=== PATIENT | female | born 1940 | race African-American/Black ===

== ENCOUNTER → 2016-12-07 | Outpatient (CLI) | payer BC, MEDICARE ==
[2015-12-25 15:19] VITALS: BP 133/63
[~2016-12-07] MED LIST: AMLO1TAB20 PO; ASPI-482 PO; CHOL10003 PO; CLON0.1T PO; CRESTOR5 MG PO; CYAN10002 IM; FENO48TA16 PO; GLIM1TAB2 PO; ISOS20TA2 PO; METO25TA4 PO; OMEG500C PO; POTA10TA5 PO; TRAM1TAB4 PO
--- NOTE | 2016-12-07 10:50 | RAD ---
DATE: 12/07/2016 EXAM: DIGITAL SCREEN BILAT W/CAD HISTORY: Screening COMPARISON: One year earlier This study was interpreted with the benefit of Computerized Aided Detection (CAD). FINDINGS: Breast Density: FATTY The Breast Parenchyma is primarily fatty replaced. Breast parenchyma level density A.. On the conventional images there is a density seen laterally in the right breast. Additional images were obtained and no definite mass is seen although the density does persist on the rolled medial image. It probably reflects summation artifact. Ultrasound was performed. The examination was targeted to the periareolar position and the lateral aspect of the breast. A definite mass laterally in the breast, corresponding to the density seen on the mammogram (again probably reflecting summation artifact) s not seen. There is a triangular hypoechoic area, nonvascular, at the 12:30 position of the breast 3 cm from the nipple which is probably benign. Follow-up mammography of the right breast and targeted ultrasound is suggested in 4 months to confirm stability IMPRESSION: Probable benign findings in the right breast as outlined above. Follow-up mammography and targeted ultrasound in 3-4 months advised BI-RADS CATEGORY: 3 PROBABLE BENIGN FINDING(S-SHORT INTERVAL FOLLOW-UP SUGGESTED RECOMMENDED FOLLOW-UP: 3M 3 MONTH FOLLOW-UP PQRS compliance statement: Patient information was entered into a reminder system with a target due date 04/09/2017 for the next mammogram. Mammography is a sensitive method for finding small breast cancers, but it does not detect them all and is not a substitute for careful clinical examination. A negative mammogram does not negate a clinically suspicious finding and should not result in delay in biopsying a clinically suspicious abnormality. "Our facility is accredited by the [employer] Mammography Program."
== END | disposition home or self-care (01) ==
LOC: MAMMO 08:16
PROVIDERS: ATTEND Obstetrics & Gynecology
DX: Z12.31 Encounter for screening mammogram for malignant neoplasm of breast (principal)
CPT/HCPCS: G0202; 77067

== ENCOUNTER 2017-05-10 11:10 | Emergency (ER) | payer MEDICARE ==
[2017-05-10 11:59] LABS: ADD MAN DIFF? NO
[2017-05-10] MEDS: MECLIZINE HCL 12.5 MG TABLET. PO (12:01)
[2017-05-10] MEDS: ONDANSETRON PF 4 MG/2 ML VIAL. IV (12:01)
[2017-05-10] MEDS: IV NORMAL SALINE 500ML BAG 500 ML IV (12:01)
[2017-05-10 12:04] LABS: BASO # 0.1 x10^3/uL (0.0-0.2); BASO % 1 % (0-3); EOS # 0.2 x10^3/uL (0.0-0.7); EOS % 2 % (0-3); HEMATOCRIT 37.4 % (36.0-47.0); HEMOGLOBIN 12.5 g/dL (12.0-15.5); LYMPH # 2.2 x10^3/uL (1.0-4.8); LYMPH % 24 % (24-48); MEAN CORPUSCULAR HEMOGLOBIN 28 pg (25-35); MEAN CORPUSCULAR HGB CONC 33 g/dL (31-37); MEAN CORPUSCULAR VOLUME 85 fL (79-100); MONO # 0.6 x10^3/uL (0.0-1.1); MONO % 7 % (0-9); NEUT # 6.2 x10^3uL (1.8-7.7); NEUT % 67 % (31-73); PLATELET COUNT 398 x10^3/uL (140-400); RED BLOOD COUNT 4.42 x10^6/uL (3.50-5.40); RED CELL DISTRIBUTION WIDTH 14.7 % (11.5-14.5); WHITE BLOOD COUNT 9.2 x10^3/uL (4.0-11.0)
[2017-05-10 12:21] LABS: TROPONINI < 0.017 ng/mL (0.000-0.055)
[2017-05-10 12:22] LABS: ANION GAP 10 (6-14); BLOOD UREA NITROGEN 29 mg/dL (7-20); BUN/CREATININE RATIO 26 (6-20); CALCIUM 9.5 mg/dL (8.5-10.1); CARBON DIOXIDE 28 mmol/L (21-32); CHLORIDE 104 mmol/L (98-107); CREATININE 1.1 mg/dL (0.6-1.0); GFR 58.3; GLUCOSE 138 mg/dL (70-99); POTASSIUM 3.8 mmol/L (3.5-5.1); SODIUM 142 mmol/L (136-145)
[2017-05-10 12:25] LABS: ALBUMIN 3.6 g/dL (3.4-5.0); ALBUMIN/GLOBULIN RATIO 0.9 (1.0-1.7); ALK PHOS 53 U/L (46-116); ALT (SGPT) 27 U/L (14-59); AST (SGOT) 27 U/L (15-37); TOTAL BILIRUBIN 0.3 mg/dL (0.2-1.0); TOTAL PROTEIN 7.5 g/dL (6.4-8.2)
[2017-05-10] MEDS ORDERED: CONTRAST GIVEN MC (12:30)
[2017-05-10] MEDS: IOHEXOL 300 MG/ML 100ML VIAL. IV (12:50)
== END 2017-05-10 15:18 | disposition home or self-care (01) ==
LOC: ER 11:10
DX: R42 Dizziness and giddiness (principal); G45.0 Vertebro-basilar artery syndrome; I65.21 Occlusion and stenosis of right carotid artery; E78.00 Pure hypercholesterolemia, unspecified; E11.9 Type 2 diabetes mellitus without complications; I10 Essential (primary) hypertension; I25.10 Atherosclerotic heart disease of native coronary artery without angina pectoris; Z90.710 Acquired absence of both cervix and uterus; Z90.49 Acquired absence of other specified parts of digestive tract; Z88.0 Allergy status to penicillin; Z88.1 Allergy status to other antibiotic agents; Z88.8 Allergy status to other drugs, medicaments and biological substances
CPT/HCPCS: 36415; 70496; 70498; 71045; 80053; 84484; 85025; 93005; 96361; 96374; 99285-25; J2405; J7040; J8597; Q9967

== ENCOUNTER → 2017-05-19 | Outpatient (CLI) | payer MEDICARE | END | disposition home or self-care (01) | LOC: ECHO 10:32 | DX: I25.10 Atherosclerotic heart disease of native coronary artery without angina pectoris (principal); I51.7 Cardiomegaly | CPT/HCPCS: 93306 ==

== ENCOUNTER → 2017-12-08 | Outpatient (CLI) | payer MEDICARE ==
[2017-05-10 13:54] VITALS: BP 170/76
[~2017-12-08] MED LIST changes: +MECL25TA3 PO; +POTA10TA12 PO; -POTA10TA5 PO
--- NOTE | 2017-12-08 09:22 | RAD ---
DATE: 12/08/2017 EXAM: MAMMO JASON SCREENING BILATERAL HISTORY: Routine screening COMPARISON: 12/07/2016 This study was interpreted with the benefit of Computerized Aided Detection (CAD). Breast Density: FATTY The breast parenchyma is primarily fatty replaced. Breast parenchyma level density A. FINDINGS: 2-D and 3-D tomosynthesis imaging was performed in CC and MLO projections. Several tiny smooth nodules are present in both breasts. These are better demonstrated on the current 3-D views compared to the previous 2-D studies. Multiple smooth nodule such as this tend to be benign. No spiculated mass or architectural distortion is evident. Benign type calcifications are present. No suspicious microcalcifications have developed. IMPRESSION: There is no mammographic evidence of malignancy in either breast. BI-RADS CATEGORY: 2 BENIGN FINDING(S) RECOMMENDED FOLLOW-UP: 12M 12 MONTH FOLLOW-UP PQRS compliance statement: Patient information was entered into a reminder system with a target due date for the next mammogram. Mammography is a sensitive method for finding small breast cancers, but it does not detect them all and is not a substitute for careful clinical examination. A negative mammogram does not negate a clinically suspicious finding and should not result in delay in biopsying a clinically suspicious abnormality. "Our facility is accredited by the [employer] Mammography Program."
== END | disposition home or self-care (01) ==
LOC: MAMMO 07:56
PROVIDERS: ATTEND Obstetrics & Gynecology
DX: Z12.31 Encounter for screening mammogram for malignant neoplasm of breast (principal)
CPT/HCPCS: 77063; 77067

== ENCOUNTER → 2018-01-28 | Outpatient (CLI) | payer MEDICARE ==
[2017-05-10 13:54] VITALS: BP 170/76
[~2018-01-28] MED LIST changes: +AMLO-292 PO; -AMLO1TAB20 PO; +REGADENOSON 0.4 MG/5 ML DISP.SYRIN. IV ONE
--- NOTE | 2018-01-28 12:59 | RAD ---
MR#: [id number] Date of Study: 01/28/2018 Ordering Physician: EMEKA LIMA, Referring Physician: BIBI JACKSON Tech: ERNIE Hinton, ARRT (R) (N) APPROVED REPORT Test Type: Pharmacological Stress Nurse/Tech: Jordana Miller R.N. Test Indications: CAD, palpatations, SOB Cardiac History: obese, htn, heart cath- no stents, DM Medications: See Electronic Medical Record Medical History: See Electronic Medical Record Resting Heart Rate: 76 bpm Resting Blood Pressure: 137/84mmHg Pretest Chest Pain: No chest pain Nurse/Tech Notes S1S2, lungs CTA Consent: The procedure was explained to the patient in lay terms. Informed consent was witnessed. Feng eout was entered into [employer]. History and Stress Test performed by Stephani Perdomo, (R) (N) Pharm. Details Pharmacologic stress testing was performed using 0.4mg per 5ml of regadenoson given intravenously ove r 7-10 seconds. Stress Symptoms slight SOB, a very weird feeling, severe h/a at first then deminished to just minimally noticed. Pt's b/p became very elevated post lexiscan and stayed elevated through the end of recovery period. had p t take her home b/p meds( takes 3) and will recheck b/p when she comes back for after stress images. Notified Carol REA of these issues. will update him after next VS taken. 1245 b/p rechecked 1 hour a fter she took her home b/p medications.b/p is now 187/73. notified Dr. Lima POST EXERCISE Reason for Termination: Infusion complete Max HR: 108 bpm Max Blood Pressure: 219/78mmHg Blood Pressure response to exercise: Abnormal increase in blood pressure during stress. Heart Rate response to exercise: wnl Chest Pain: No. Arrhythmia: No. INTERPRETATION Stress EKG Conclusion: The resting EKG shows a sinus rhythm and diffuse nonspecific ST-T wave changes . The stress EKG showed further nonspecific ST-T wave changes. Baseline abnormal EKG with nonspecific ST-T wave changes, these changes became more prominent with st ress. Suggestive but not diagnostic of ischemia. Imaging Protocol IMAGE PROTOCOL: Rest Tc-99m/stress Tc-99m 1 day Rest: Stress: Viability: Radiopharm.Tc99m [id number] Sestamibi Dose11.1mCi 35.2mCi Img Date 01/28/2018 01/28/2018 Inj-Img Dsxr37tml. 60min. Rest Admin Site:IV - Left AntecubitalAdministrator:RT David (R)(N) Stress Admin Site: IV - Left AntecubitalAdministrator: RT David (R)(N) STRESS DATA End Diast. Vol.60.0mlLVEDV index BSA32.0ml End Syst. Vol.10.0mlLVESV index BSA5.0ml Myocardial Rixw093.0gEject. Oimuebqg69.0% Stress Scores Regional WT1.00Summed WT7.00 Regional WM0.00Summed WM0.00 LV Perfusion The stress scans show inferior wall thinning. The rest scans show inferior wall thinning. Nuclear imaging shows no reversible ischemia. Nuclear imaging shows fixed mild inferior wall thinning which in the setting of normal LV systolic fu nction is consistent with an attenuation defect. Wall Motion Left ventricular systolic function is normal with an ejection fraction of greater than 70%. LV Perf. Quant 17 Seg. SSS4.00 17 Seg. SRS6.00 17 Seg. SDS0.00 Stress Defect Extent (% LAD)1.30Rest Defect Extent (% LAD)0.00Rev. Defect Extent (% LAD)0.00 Stress Defect Extent (% LCX) 0.00Rest Defect Extent (% LCX)1.30Rev. Defect Extent (% LCX)0.00 Stress Defect Extent (% RCA)0.00Rest Defect Extent (% RCA)24.40Rev. Defect Extent (% RCA)0.00 Stress Defect Extent (% ELMER)1.30Rest Defect Extent (% ELMER)7.80Rev. Defect Extent (% ELMER)0.00 Conclusion 1. Abnormal baseline EKG with nonspecific ST-T wave changes which become more prominent with stress. This is suggestive but not diagnostic of ischemia. 2. Nuclear imaging shows no reversible ischemia. 3. Nuclear imaging shows fixed mild inferior wall thinning which is consistent with an attenuation de fect. 4. Normal left ventricular systolic function with no regional wall motion abnormalities and an ejecti on fraction of greater than 70%. 5. Moderately low risk Lexiscan nuclear stress test with no reversible ischemia and normal LV systoli c function. Signed by : Crispin Trinidad MD Electronically Approved : 01/28/2018 12:58:06
== END | disposition home or self-care (01) ==
LOC: NM 08:41
PROVIDERS: ATTEND Internal Medicine Cardiovascular Disease
DX: I25.10 Atherosclerotic heart disease of native coronary artery without angina pectoris (principal); E66.9 Obesity, unspecified; I10 Essential (primary) hypertension; E11.9 Type 2 diabetes mellitus without complications; R94.31 Abnormal electrocardiogram [ECG] [EKG]; R00.2 Palpitations
CPT/HCPCS: 78452; 93017; 96374; 96375; 96376; A9500; J2785

== ENCOUNTER 2018-04-26 20:19 | Inpatient (IN) | payer MEDICARE ==
[~2018-04-26] VITALS: Ht 160 cm; Wt 86.2 kg
[~2018-04-26 20:19] MED LIST changes: -REGADENOSON 0.4 MG/5 ML DISP.SYRIN. IV ONE
[2018-04-26] MEDS ORDERED: IV NORMAL SALINE 1000ML BAG 1,000 ML IV SCH (20:32)
[2018-04-26] MEDS ORDERED: diphenhydrAMINE 50 MG/ML VIAL IV ONE (20:45)
[2018-04-26] MEDS ORDERED: methylPREDNISolone SOD SUCC PF 125 MG/2 ML VIAL. IV ONE (20:45)
[2018-04-26] MEDS ORDERED: FAMOTIDINE 20 MG/2 ML VIAL IVP ONE (20:45)
--- NOTE | 2018-04-26 21:08 | PHYS DOC ---
Past Medical History Past Medical History: Diabetes-Type II, High Cholesterol, Hypertension Additional Past Medical Histor: LOW POTASSIUM,"ventricular tachycardia" w ablation Past Surgical History: Appendectomy, Cholecystectomy, Hysterectomy Additional Past Surgical Histo: BACK SURGERY, CARDIAC CATH, vascular surgery of the aorta Alcohol Use: None Drug Use: None Adult General Chief Complaint Chief Complaint: TONGUE SWELLING/INJURY [facility] HPI Patient is a 78-year-old female who presents with complaint of tongue pain, swelling and pain and swelling around her gums that started today. Patient had been at [facility] and had cardiac ablation. She states that she has had a history of tongue swelling in the past associated with lisinopril. She also indicates that she noticed that her tongue is white. She denies any fever, nausea or vomiting. She rates pain as being moderate. She also complains of sore throat. Review of Systems Review of Systems Constitutional: Denies fever or chills [] HENT: Complains of tongue swelling, pain and white plaque-like coating[] Respiratory: Denies cough or shortness of breath [] Cardiovascular: No additional information not addressed in HPI [] GI: Denies abdominal pain, nausea, vomiting or diarrhea [] Integument: Denies rash or skin lesions [] Neurologic: Denies headache, focal weakness or sensory changes [] A full 10 point review of systems has been reviewed and is otherwise negative. Current Medications Current Medications Current Medications Medications (Trade) Dose Ordered Sig/[facility] Start Time Stop Time Status Last Admin Dose Admin Clonidine HCl (Catapres) 0.2 mg 1X ONCE 04/26/18 22:15 04/26/18 22:16 DC 04/26/18 22:28 0.2 MG Diphenhydramine HCl (Benadryl) 25 mg 1X ONCE 04/26/18 20:45 04/26/18 20:46 DC 04/26/18 21:23 25 MG Famotidine (Pepcid Vial) 20 mg 1X ONCE 04/26/18 20:45 04/26/18 20:46 DC 04/26/18 21:23 20 MG Methylprednisolone Sodium Succinate (SOLU-Medrol 125MG VIAL) 125 mg 1X ONCE 04/26/18 20:45 04/26/18 20:46 DC 04/26/18 21:23 125 MG Sodium Chloride 1,000 ml @ 100 mls/hr Q10H 04/26/18 20:32 2/27/19 06:31 04/26/18 21:22 100 MLS/HR Allergies Allergies Allergies Coded Allergies Type Severity Reaction Last Updated Verified lisinopril Allergy Severe Swelling 04/02/15 Yes Penicillins Allergy Intermediate Hives 04/02/15 Yes azithromycin Allergy Intermediate Nausea and Vomiting 04/02/15 Yes cefaclor Allergy Intermediate Nausea and Vomiting 04/03/15 Yes Physical Exam Physical Exam Constitutional: Well developed, well nourished, no acute distress, non-toxic appearance. [] HENT: Normocephalic, atraumatic, bilateral external ears normal, oropharynx moist, tongue with what appears to be white plaque-like covering in mild swelling, nose normal. [] Eyes: PERRLA, EOMI, conjunctiva normal, no discharge. [] Neck: Normal range of motion, no tenderness, supple. [] Cardiovascular: Regular rate and rhythm[] Lungs & Thorax: Bilateral breath sounds clear to auscultation [] Abdomen: Bowel sounds normal, soft, no tenderness. [] Skin: Warm, dry, no erythema, no rash. [] Extremities: No tenderness, no cyanosis, no clubbing, ROM intact. [] Neurologic: Alert and oriented X 3, normal motor function, normal sensory function, no focal deficits noted. [] Current Patient Data Vital Signs Vital Signs Date Time Temp Pulse Resp B/P (MAP) Pulse Ox O2 Delivery O2 Flow Rate FiO2 04/26/18 22:28 91 245/106 04/26/18 20:52 20 96 Room Air 04/26/18 20:22 97.8 97.8 Lab Values Laboratory Tests Test 04/26/18 21:25 White Blood Count 11.1 x10^3/uL (4.0-11.0) H Red Blood Count 4.68 x10^6/uL (3.50-5.40) Hemoglobin 12.7 g/dL (12.0-15.5) Hematocrit 39.0 % (36.0-47.0) Mean Corpuscular Volume 83 fL (79-100) Mean Corpuscular Hemoglobin 27 pg (25-35) Mean Corpuscular Hemoglobin Concent 33 g/dL (31-37) Red Cell Distribution Width 15.3 % (11.5-14.5) H Platelet Count 327 x10^3/uL (140-400) Neutrophils (%) (Auto) 63 % (31-73) Lymphocytes (%) (Auto) 26 % (24-48) Monocytes (%) (Auto) 8 % (0-9) Eosinophils (%) (Auto) 2 % (0-3) Basophils (%) (Auto) 0 % (0-3) Neutrophils # (Auto) 7.0 x10^3uL (1.8-7.7) Lymphocytes # (Auto) 2.9 x10^3/uL (1.0-4.8) Monocytes # (Auto) 0.9 x10^3/uL (0.0-1.1) Eosinophils # (Auto) 0.2 x10^3/uL (0.0-0.7) Basophils # (Auto) 0.0 x10^3/uL (0.0-0.2) Sodium Level 143 mmol/L (136-145) Potassium Level 3.4 mmol/L (3.5-5.1) L Chloride Level 102 mmol/L (98-107) Carbon Dioxide Level 32 mmol/L (21-32) Anion Gap 9 (6-14) Blood Urea Nitrogen 24 mg/dL (7-20) H Creatinine 1.0 mg/dL (0.6-1.0) Estimated GFR (Cockcroft-Gault) 64.9 BUN/Creatinine Ratio 24 (6-20) H Glucose Level 118 mg/dL (70-99) H Calcium Level 9.3 mg/dL (8.5-10.1) Total Bilirubin 0.4 mg/dL (0.2-1.0) Aspartate Amino Transferase (AST) 27 U/L (15-37) Alanine Aminotransferase (ALT) 20 U/L (14-59) Alkaline Phosphatase 51 U/L (46-116) Total Protein 7.5 g/dL (6.4-8.2) Albumin 3.5 g/dL (3.4-5.0) Albumin/Globulin Ratio 0.9 (1.0-1.7) L Laboratory Tests 04/26/18 21:25 Laboratory Tests 04/26/18 21:25 EKG EKG [] Radiology/Procedures Radiology/Procedures [] Course & Med Decision Making Course & Med Decision Making Pertinent Labs and Imaging studies reviewed. (See chart for details) [] Dragon Disclaimer Dragon Disclaimer This electronic medical record was generated, in whole or in part, using a voice recognition dictation system. Departure Departure Impression: Primary Impression: Angio-edema Additional Impression: Hypertensive urgency Disposition: ADMITTED INPATIENT Admitting Physician: Benedicto Zee Condition: IMPROVED Referrals: OMA MARIN MD (PCP) Problem Qualifiers Primary Impression: Angio-edema Encounter type: initial encounter Qualified Codes: T78.3XXA - Angioneurotic edema, initial encounter MICHELLE FLYNN Jr. DO Apr 26, 2018 21:08
[2018-04-26 21:54] LABS: BASO % 0 % (0-3); EOS # 0.2 x10^3/uL (0.0-0.7); EOS % 2 % (0-3); HEMOGLOBIN 12.7 g/dL (12.0-15.5); LYMPH # 2.9 x10^3/uL (1.0-4.8); LYMPH % 26 % (24-48); MEAN CORPUSCULAR HEMOGLOBIN 27 pg (25-35); MEAN CORPUSCULAR HGB CONC 33 g/dL (31-37); MEAN CORPUSCULAR VOLUME 83 fL (79-100); MONO # 0.9 x10^3/uL (0.0-1.1); MONO % 8 % (0-9); NEUT % 63 % (31-73); PLATELET COUNT 327 x10^3/uL (140-400); RED BLOOD COUNT 4.68 x10^6/uL (3.50-5.40); RED CELL DISTRIBUTION WIDTH 15.3 % (11.5-14.5); WHITE BLOOD COUNT 11.1 x10^3/uL (4.0-11.0)
[2018-04-26 22:07] LABS: CALCIUM 9.3 mg/dL (8.5-10.1); GFR 64.9; POTASSIUM 3.4 mmol/L (3.5-5.1)
[2018-04-26 22:13] LABS: ALBUMIN 3.5 g/dL (3.4-5.0); ALBUMIN/GLOBULIN RATIO 0.9 (1.0-1.7); TOTAL BILIRUBIN 0.4 mg/dL (0.2-1.0); TOTAL PROTEIN 7.5 g/dL (6.4-8.2)
[2018-04-26] MEDS ORDERED: cloNIDine HCL 0.1 MG TABLET PO ONE (22:15)
[2018-04-26] MEDS ORDERED: hydrALAZINE 20 MG/ML VIAL. IVP PRN (22:45)
[2018-04-26] MEDS ORDERED: RANO500T2 PO (23:26)
[2018-04-26] MEDS ORDERED: POTA10TA12 PO (23:26)
[2018-04-26] MEDS ORDERED: CLOP75TA PO (23:26)
[2018-04-26] MEDS ORDERED: ISOS60TA2 PO (23:26)
[2018-04-26] MEDS ORDERED: OLME1TAB25 PO (23:26)
[2018-04-27] VITALS (9 sets, daily range): BP systolic 120–205; BP diastolic 72–101
[2018-04-27] MEDS ORDERED: AMLO10TA8 PO (00:49)
[2018-04-27] MEDS ORDERED: TRAM50TA PO (02:14)
--- NOTE | 2018-04-27 03:02 | NUR ---
Pt arrived to room 209 via wheelchair from the ER at 0040. She transferred to her bed with a steady gait. Family accompanied her and she is an accurate historian. No complaints of pain, dizzy, soa. Tongue is white-alba with normal moisture and pt states it is much improved since treatment in the ER. Pt still hypertensive, see vitals. Pt was treated by Dr. Tee (-sp?) cardiac electrophysiology at [facility] yesterday with an ablation for V-tach. PRN hydralazine administered per APR.
[2018-04-27] MEDS: ISOSORBIDE MONONITRATE ER 30 MG TAB.ER.24H PO SCH (08:06)
[2018-04-27 08:07] LABS: BASO % 0 % (0-3); EOS % 0 % (0-3); HEMATOCRIT 36.5 % (36.0-47.0); LYMPH # 1.2 x10^3/uL (1.0-4.8); LYMPH % 12 % (24-48); MEAN CORPUSCULAR HEMOGLOBIN 27 pg (25-35); MEAN CORPUSCULAR HGB CONC 33 g/dL (31-37); MEAN CORPUSCULAR VOLUME 83 fL (79-100); MONO # 0.1 x10^3/uL (0.0-1.1); MONO % 1 % (0-9); NEUT # 8.7 x10^3uL (1.8-7.7); NEUT % 87 % (31-73); PLATELET COUNT 315 x10^3/uL (140-400); RED BLOOD COUNT 4.37 x10^6/uL (3.50-5.40); RED CELL DISTRIBUTION WIDTH 15.6 % (11.5-14.5)
[2018-04-27] MEDS: POTASSIUM CHLORIDE 10 MEQ TABLET.ER. PO SCH ×2 (08:07→17:00)
[2018-04-27] MEDS: ASPIRIN ENTERIC COATED 81 MG TABLET.DR. PO SCH (08:07)
[2018-04-27] MEDS: FENOFIBRATE 54 MG TABLET. PO SCH (08:07)
[2018-04-27] MEDS: amLODIPine BESYLATE 10 MG TABLET PO SCH (08:07)
[2018-04-27] MEDS: cloNIDine HCL 0.1 MG TABLET PO SCH (08:08)
[2018-04-27] MEDS: RANOLAZINE 500 MG TAB.ER.12H PO SCH ×2 (08:10→21:15)
[2018-04-27] MEDS: CLOPIDOGREL BISULFATE 75 MG TABLET PO SCH (08:10)
[2018-04-27] MEDS: METOPROLOL TART IMMED RELEASE 25 MG TABLET. PO SCH ×2 (08:10→21:14)
[2018-04-27 08:32] LABS: CALCIUM 9.4 mg/dL (8.5-10.1); CREATININE 1.2 mg/dL (0.6-1.0); GFR 52.6; POTASSIUM 3.6 mmol/L (3.5-5.1)
[2018-04-27] MEDS ORDERED: GLIMEPIRIDE 2 MG TABLET. PO SCH (09:00)
[2018-04-27 11:08] LABS: % LYMPHS 13 % (24-48); % MONOS 1 % (0-10); % SEGS 86 % (35-66)
[2018-04-27 11:09] LABS: PLT ESTIMATE ADEQUATE (ADEQUATE)
--- NOTE | 2018-04-27 11:20 | NUR ---
SS following for discharge planning. SS reviewed pt chart. Pt is from home and currently on room air. No discharge needs noted at this time. SS will continue to follow for pending discharge needs.
[2018-04-27] MEDS: FLUCONAZOLE 100 MG TABLET. PO SCH (12:39)
[2018-04-27] MEDS: CHLORTHALIDONE 25 MG TABLET. PO SCH (12:39)
[2018-04-27] MEDS: traMADol 50 MG TABLET PO PRN ×3 (12:39→18:32)
--- NOTE | 2018-04-27 17:11 | PDOC1 ---
History and Physical Date of Admission Date of Admission 04/27/2018 Identification/Chief Complaint Chief Complaint my tongue was swollen Problems: (1) Angio-edema (2) Hypertensive urgency Source Source: Chart review, Patient History of Present Illness History of Present Illness Patient is a 78 year old female who was in her susual state of heatlh until the evening of her admission when she presented tongue "swelling" and also "white stuff" all along her tongue and was having trouble with odynophgia with the events. Patient had been told in the past that she should stay away from John inhibitors including lisinopril but she has been taking LOSARTAN WITH HCTZ IN THE OUTPATIENT SETTING. SHE SAYS THAT SHE HAS BEEN ON HER SAME MEDICATIONS for quite some time now. Patient at the time of my evaluation is in no apparent distress, she was admitted overnight for concerns of angioedema and also uncontrolled hypertension lSHe is not complaining of chest pain at the time of my evaluation no palpitations no headache blurred vision or neurolgoical deficits evident. Paln of care discussed ith the patient and family at bedside. er course: Patient is a 78-year-old female who presents with complaint of tongue pain, swelling and pain and swelling around her gums that started today. Patient had been at [facility] and had cardiac ablation. She states that she has had a history of tongue swelling in the past associated with lisinopril. She also indicates that she noticed that her tongue is white. She denies any fever, nausea or vomiting. She rates pain as being moderate. She also complains of sore throat. Past Medical History Cardiovascular: HTN, Hyperlipidemia, Other CENTRAL NERVOUS SYSTEM: Other Renal/: Chronic renal insuff Endocrine: Diabetes Past Surgical History Past Surgical History: Cholecystectomy, Hysterectomy, Other Family History Family History: No Significant, Hypertension Social History ALCOHOL: none Drugs: None Current Problem List Problem List Problems Medical Problems: (1) Angio-edema Status: Acute (2) Hypertensive urgency Status: Acute Current Medications Current Medications Current Medications Medications (Trade) Dose Ordered Sig/Laura Start Time Stop Time Status Last Admin Dose Admin Amlodipine Besylate (Norvasc) 10 mg DAILY 04/27/18 09:00 04/27/18 08:07 10 MG Aspirin (Ecotrin) 81 mg DAILY 04/27/18 09:00 04/27/18 08:07 81 MG Atorvastatin Calcium (Lipitor) 20 mg QHS 04/27/18 21:00 Chlorthalidone (Thalitone) 25 mg DAILY 04/27/18 11:00 04/27/18 12:39 25 MG Clonidine HCl (Catapres) 0.1 mg DAILY 04/27/18 09:00 04/27/18 08:08 0.1 MG Clopidogrel Bisulfate (Plavix) 75 mg DAILY 04/27/18 09:00 04/27/18 08:10 75 MG Diphenhydramine HCl (Benadryl) 25 mg 1X ONCE 04/26/18 20:45 04/26/18 20:46 DC 04/26/18 21:23 25 MG Famotidine (Pepcid Vial) 20 mg 1X ONCE 04/26/18 20:45 04/26/18 20:46 DC 04/26/18 21:23 20 MG Fenofibrate (Lofibra) 54 mg DAILY 04/27/18 09:00 04/27/18 08:07 54 MG Fluconazole (Diflucan) 100 mg DAILY 04/27/18 10:45 04/27/18 12:39 100 MG Glimepiride (Amaryl) 0.5 mg BID 04/27/18 09:00 04/27/18 08:08 0.5 MG Hydralazine HCl (Apresoline Inj) 10 mg PRN Q4HRS PRN 04/26/18 22:45 04/27/18 01:16 10 MG Isosorbide Mononitrate (Imdur) 60 mg DAILY 04/27/18 09:00 04/27/18 08:06 60 MG Methylprednisolone Sodium Succinate (SOLU-Medrol 125MG VIAL) 125 mg 1X ONCE 04/26/18 20:45 04/26/18 20:46 DC 04/26/18 21:23 125 MG Metoprolol Tartrate (Lopressor) 25 mg BID 04/27/18 09:00 04/27/18 08:10 25 MG Potassium Chloride (Klor-Con) 10 meq BIDWMEALS 04/27/18 08:00 04/27/18 08:07 10 MEQ Ranolazine (Ranexa) 500 mg BID 04/27/18 09:00 04/27/18 08:10 500 MG Sodium Chloride 1,000 ml @ 100 mls/hr Q10H 04/26/18 20:32 04/27/18 06:31 DC 04/26/18 21:22 100 MLS/HR Tramadol HCl (Ultram) 50 mg PRN Q6HRS PRN 04/27/18 07:45 04/27/18 13:25 50 MG Allergies Allergies Allergies Coded Allergies Type Severity Reaction Last Updated Verified lisinopril Allergy Severe Swelling 04/02/15 Yes Penicillins Allergy Intermediate Hives 04/02/15 Yes azithromycin Allergy Intermediate Nausea and Vomiting 04/02/15 Yes cefaclor Allergy Intermediate Nausea and Vomiting 04/03/15 Yes ROS Review of System CONSTITUTIONAL: No fever or chills EYES: No recent changes SKIN: No rash or itching CARDIOVASCULAR: No chest pain, syncope, palpitations, or edema RESPIRATORY: No SOB or cough GASTROINTESTINAL: No nausea, vomiting or abdominal pain NEUROLOGICAL: No headaches or weakness ENDOCRINE: No cold or heat intolerance GENITOURINARY: No urgency or frequency of urination MUSCULOSKELETAL: No back pain or joint pain LYMPHATICS: No enlarged lymph nodes PSYCHIATRIC: No anxiety or depression Physical Exam Physical Exam GEN.: No apparent distress. Alert and oriented. HEENT: Head is normocephalic, atraumatic NECK: Supple. LUNGS: Clear to auscultation. HEART: RRR, S1, S2 present. Peripheral pulses intact ABDOMEN: Soft, nontender. Positive bowel sounds. EXTREMITIES: Without any cyanosis. NEUROLOGIC: Normal speech, normal tone PSYCHIATRIC: Normal affect, normal mood. SKIN: No ulcerations Vitals Vitals Vital Signs Date Time Temp Pulse Resp B/P (MAP) Pulse Ox O2 Delivery O2 Flow Rate FiO2 04/27/18 15:20 97.3 79 20 147/77 (100) 98 Room Air 97.3 Labs Labs Laboratory Tests Test 04/26/18 21:25 04/26/18 21:40 04/27/18 06:00 04/27/18 07:59 White Blood Count 11.1 x10^3/uL (4.0-11.0) 10.0 x10^3/uL (4.0-11.0) Red Blood Count 4.68 x10^6/uL (3.50-5.40) 4.37 x10^6/uL (3.50-5.40) Hemoglobin 12.7 g/dL (12.0-15.5) 12.0 g/dL (12.0-15.5) Hematocrit 39.0 % (36.0-47.0) 36.5 % (36.0-47.0) Mean Corpuscular Volume 83 fL (79-100) 83 fL (79-100) Mean Corpuscular Hemoglobin 27 pg (25-35) 27 pg (25-35) Mean Corpuscular Hemoglobin Concent 33 g/dL (31-37) 33 g/dL (31-37) Red Cell Distribution Width 15.3 % (11.5-14.5) 15.6 % (11.5-14.5) Platelet Count 327 x10^3/uL (140-400) 315 x10^3/uL (140-400) Neutrophils (%) (Auto) 63 % (31-73) 87 % (31-73) Lymphocytes (%) (Auto) 26 % (24-48) 12 % (24-48) Monocytes (%) (Auto) 8 % (0-9) 1 % (0-9) Eosinophils (%) (Auto) 2 % (0-3) 0 % (0-3) Basophils (%) (Auto) 0 % (0-3) 0 % (0-3) Neutrophils # (Auto) 7.0 x10^3uL (1.8-7.7) 8.7 x10^3uL (1.8-7.7) Lymphocytes # (Auto) 2.9 x10^3/uL (1.0-4.8) 1.2 x10^3/uL (1.0-4.8) Monocytes # (Auto) 0.9 x10^3/uL (0.0-1.1) 0.1 x10^3/uL (0.0-1.1) Eosinophils # (Auto) 0.2 x10^3/uL (0.0-0.7) 0.0 x10^3/uL (0.0-0.7) Basophils # (Auto) 0.0 x10^3/uL (0.0-0.2) 0.0 x10^3/uL (0.0-0.2) Sodium Level 143 mmol/L (136-145) 143 mmol/L (136-145) Potassium Level 3.4 mmol/L (3.5-5.1) 3.6 mmol/L (3.5-5.1) Chloride Level 102 mmol/L (98-107) 104 mmol/L (98-107) Carbon Dioxide Level 32 mmol/L (21-32) 28 mmol/L (21-32) Anion Gap 9 (6-14) 11 (6-14) Blood Urea Nitrogen 24 mg/dL (7-20) 24 mg/dL (7-20) Creatinine 1.0 mg/dL (0.6-1.0) 1.2 mg/dL (0.6-1.0) Estimated GFR (Cockcroft-Gault) 64.9 52.6 BUN/Creatinine Ratio 24 (6-20) Glucose Level 118 mg/dL (70-99) 198 mg/dL (70-99) Calcium Level 9.3 mg/dL (8.5-10.1) 9.4 mg/dL (8.5-10.1) Total Bilirubin 0.4 mg/dL (0.2-1.0) Aspartate Amino Transf (AST/SGOT) 27 U/L (15-37) Alanine Aminotransferase (ALT/SGPT) 20 U/L (14-59) Alkaline Phosphatase 51 U/L (46-116) Total Protein 7.5 g/dL (6.4-8.2) Albumin 3.5 g/dL (3.4-5.0) Albumin/Globulin Ratio 0.9 (1.0-1.7) Group A Streptococcus Rapid Negative (NEGATIVE) Segmented Neutrophils % 86 % (35-66) Lymphocytes % 13 % (24-48) Monocytes % 1 % (0-10) Platelet Estimate Adequate (ADEQUATE) Glucose (Fingerstick) 190 mg/dL (70-99) Test 04/27/18 11:59 Glucose (Fingerstick) 182 mg/dL (70-99) Laboratory Tests Test 04/26/18 21:25 04/26/18 21:40 04/27/18 06:00 04/27/18 07:59 White Blood Count 11.1 x10^3/uL (4.0-11.0) 10.0 x10^3/uL (4.0-11.0) Red Blood Count 4.68 x10^6/uL (3.50-5.40) 4.37 x10^6/uL (3.50-5.40) Hemoglobin 12.7 g/dL (12.0-15.5) 12.0 g/dL (12.0-15.5) Hematocrit 39.0 % (36.0-47.0) 36.5 % (36.0-47.0) Mean Corpuscular Volume 83 fL (79-100) 83 fL (79-100) Mean Corpuscular Hemoglobin 27 pg (25-35) 27 pg (25-35) Mean Corpuscular Hemoglobin Concent 33 g/dL (31-37) 33 g/dL (31-37) Red Cell Distribution Width 15.3 % (11.5-14.5) 15.6 % (11.5-14.5) Platelet Count 327 x10^3/uL (140-400) 315 x10^3/uL (140-400) Neutrophils (%) (Auto) 63 % (31-73) 87 % (31-73) Lymphocytes (%) (Auto) 26 % (24-48) 12 % (24-48) Monocytes (%) (Auto) 8 % (0-9) 1 % (0-9) Eosinophils (%) (Auto) 2 % (0-3) 0 % (0-3) Basophils (%) (Auto) 0 % (0-3) 0 % (0-3) Neutrophils # (Auto) 7.0 x10^3uL (1.8-7.7) 8.7 x10^3uL (1.8-7.7) Lymphocytes # (Auto) 2.9 x10^3/uL (1.0-4.8) 1.2 x10^3/uL (1.0-4.8) Monocytes # (Auto) 0.9 x10^3/uL (0.0-1.1) 0.1 x10^3/uL (0.0-1.1) Eosinophils # (Auto) 0.2 x10^3/uL (0.0-0.7) 0.0 x10^3/uL (0.0-0.7) Basophils # (Auto) 0.0 x10^3/uL (0.0-0.2) 0.0 x10^3/uL (0.0-0.2) Sodium Level 143 mmol/L (136-145) 143 mmol/L (136-145) Potassium Level 3.4 mmol/L (3.5-5.1) 3.6 mmol/L (3.5-5.1) Chloride Level 102 mmol/L (98-107) 104 mmol/L (98-107) Carbon Dioxide Level 32 mmol/L (21-32) 28 mmol/L (21-32) Anion Gap 9 (6-14) 11 (6-14) Blood Urea Nitrogen 24 mg/dL (7-20) 24 mg/dL (7-20) Creatinine 1.0 mg/dL (0.6-1.0) 1.2 mg/dL (0.6-1.0) Estimated GFR (Cockcroft-Gault) 64.9 52.6 BUN/Creatinine Ratio 24 (6-20) Glucose Level 118 mg/dL (70-99) 198 mg/dL (70-99) Calcium Level 9.3 mg/dL (8.5-10.1) 9.4 mg/dL (8.5-10.1) Total Bilirubin 0.4 mg/dL (0.2-1.0) Aspartate Amino Transf (AST/SGOT) 27 U/L (15-37) Alanine Aminotransferase (ALT/SGPT) 20 U/L (14-59) Alkaline Phosphatase 51 U/L (46-116) Total Protein 7.5 g/dL (6.4-8.2) Albumin 3.5 g/dL (3.4-5.0) Albumin/Globulin Ratio 0.9 (1.0-1.7) Group A Streptococcus Rapid Negative (NEGATIVE) Segmented Neutrophils % 86 % (35-66) Lymphocytes % 13 % (24-48) Monocytes % 1 % (0-10) Platelet Estimate Adequate (ADEQUATE) Glucose (Fingerstick) 190 mg/dL (70-99) Test 04/27/18 11:59 Glucose (Fingerstick) 182 mg/dL (70-99) VTE Prophylaxis Ordered VTE Prophylaxis Devices: No VTE Pharmacological Prophylaxi: No Assessment/Plan Assessment/Plan Hypertensive urgency improved Angioedema? secondary to ARB most likely will discontinue benicar Thrush Recent cardiac ablation diabetes mellitus type 2 histoyf o dyslipidemia Plan: restart home meds start chlorthalidone start diflucan for thrush reasess in the am will consult cardiology for evaluation given her recent cardiac ablation DVT prophylaxis:scd adn teds Problem Qualifiers (1) Angio-edema: Encounter type: initial encounter Qualified Codes: T78.3XXA - Angioneurotic edema, initial encounter TANNER CHRISTOPHER MD Apr 27, 2018 17:11
[2018-04-27] MEDS: ATORVASTATIN CALCIUM 20 MG TABLET PO SCH (21:13)
[2018-04-27] MEDS: predniSONE 20 MG TABLET PO SCH (21:18)
[2018-04-28 02:35] VITALS: BP 136/66
[2018-04-28 07:00] VITALS: BP 128/62
[2018-04-28] MEDS: POTASSIUM CHLORIDE 10 MEQ TABLET.ER. PO SCH ×2 (08:36→17:31)
[2018-04-28] MEDS: GLIMEPIRIDE 2 MG TABLET. PO SCH ×2 (08:36→17:31)
[2018-04-28] MEDS: ASPIRIN ENTERIC COATED 81 MG TABLET.DR. PO SCH (08:38)
[2018-04-28] MEDS: CLOPIDOGREL BISULFATE 75 MG TABLET PO SCH (08:38)
[2018-04-28] MEDS: predniSONE 20 MG TABLET PO SCH (08:38)
[2018-04-28] MEDS: FENOFIBRATE 54 MG TABLET. PO SCH (08:38)
[2018-04-28] MEDS: FLUCONAZOLE 100 MG TABLET. PO SCH (08:41)
[2018-04-28] MEDS: RANOLAZINE 500 MG TAB.ER.12H PO SCH ×2 (08:44→21:39)
[2018-04-28] MEDS: CHLORTHALIDONE 25 MG TABLET. PO SCH (08:44)
[2018-04-28] MEDS: cloNIDine HCL 0.1 MG TABLET PO SCH (08:45)
[2018-04-28] MEDS: amLODIPine BESYLATE 10 MG TABLET PO SCH (08:46)
[2018-04-28] MEDS: METOPROLOL TART IMMED RELEASE 25 MG TABLET. PO SCH ×2 (08:46→21:38)
[2018-04-28] MEDS: ISOSORBIDE MONONITRATE ER 30 MG TAB.ER.24H PO SCH (08:48)
--- NOTE | 2018-04-28 10:05 | NUR ---
Request sent to [facility] for patients recent ablasion records this shift.
--- NOTE | 2018-04-28 10:29 | PDOC2 ---
MOI CARRASCO SECURITIES COUNSELOR 04/28/18 1029: CARDIAC CONSULT DATE OF CONSULT Date of Consult DATE: 04/28/18 TIME: 09:55 REASON FOR CONSULT Reason for Consult: Angioedema, HTN urgency REFERRING PHYSICIAN Referring Physician: Adarsh SOURCE Source: Chart review, Patient HISTORY OF PRESENT ILLNESS HISTORY OF PRESENT ILLNESS This is a pleasant 78 yo female admitted for complains of tongue swelling. 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 The procedure was successfully done Wednesday and was discharged Wednesday. She had whitish coloration with some irritation in her gums and throat prior to DC at that time and was told to gargle salt. No prior antibiotics. This then progressed to swelling in her tongue and gums and could not talk clearly. She then went to [facility] ED and was suspected of possible thrush and angioedema. She is allergic to lisinopril with angioedema but has been tolerating benicar for over 2 yrs now without issues until her ablation. Denies any chest pain or SOA. Her arteriotomy sites in her groin are normal with no swelling or pain. Her BP meds was just resumed after the procedure and as an inpt her BP has been labile. She was given multiple antiinflammatories via IV and responded well. PAST MEDICAL HISTORY Cardiovascular: CAD (known [employer] REP to RCA with left to right collaterals), HTN, Hyperlipidemia, Other (PAD; AVNRT; carotid artery disease; subclavian steal ) Pulmonary: Asthma CENTRAL NERVOUS SYSTEM: Other (No pertinent history) GI: No pertinent hx Heme/Onc: Anemia NOS Psych: No pertinent hx Musculoskeletal: Osteoarthritis Rheumatologic: No pertinent hx Infectious disease: No pertinent hx ENT: Allergic Rhinitis Renal/: Chronic renal insuff Endocrine: Diabetes (2) PAST SURGICAL HISTORY Past Surgical History: Arthroscopy (left shoulder), Cataract Removal (left), Hysterectomy, Other (Loop recorder ([facility]); recent cardiac ablation 04/25/2018 ; back surgery; left bunionectomy; aorto iliac bypass graft 04/2015) FAMILY HISTORY Family History: Heart Disease SOCIAL HISTORY Smoke: Quit ALCOHOL: none Drugs: None Lives: with Family CURRENT MEDICATIONS CURRENT MEDICATIONS Current Medications Medications (Trade) Dose Ordered Sig/Laura Route PRN Reason Start Time Stop Time Status Last Admin Dose Admin Atorvastatin Calcium (Lipitor) 20 mg QHS PO 2/27/19 21:00 04/27/18 21:13 Chlorthalidone (Thalitone) 25 mg DAILY PO 04/27/18 11:00 04/28/18 08:44 Fluconazole (Diflucan) 100 mg DAILY PO 04/27/18 10:45 04/28/18 08:41 Glimepiride (Amaryl) 1 mg BIDWMEALS PO 04/28/18 08:00 04/28/18 08:36 Prednisone (Prednisone) 40 mg DAILY PO 04/27/18 21:00 04/28/18 08:38 ALLERGIES ALLERGIES: Coded Allergies: lisinopril (Verified Allergy, Severe, Swelling, 04/02/15) swelling in mouth and throat Penicillins (Verified Allergy, Intermediate, Hives, 04/02/15) azithromycin (Verified Allergy, Intermediate, Nausea and Vomiting, 04/02/15) cefaclor (Verified Allergy, Intermediate, Nausea and Vomiting, 04/03/15) ROS Review of System 14 point ROS evaluated with pertinent positives noted per HPI PHYSICAL EXAM General: Alert, Oriented X3, Cooperative, No acute distress HEENT: Atraumatic, Mucous membr. moist/pink Lungs: Clear to auscultation, Normal air movement Heart: Regular rate (SR), Normal S1, Normal S2 Abdomen: Soft, No tenderness Extremities: No cyanosis, Other (trace LE edema) Skin: No breakdown, No significant lesion Neuro: Normal speech, Sensation intact Psych/Mental Status: Mental status NL, Mood NL MUSCULOSKELETAL: Osteoarthritic changes both hands VITALS VITALS Vital Signs Date Time Temp Pulse Resp B/P (MAP) Pulse Ox O2 Delivery O2 Flow Rate FiO2 04/28/18 08:48 75 166/74 04/28/18 07:00 97.7 18 95 Room Air 97.7 LABS Lab: Laboratory Tests Test 04/27/18 11:59 04/27/18 17:51 04/28/18 07:05 Glucose (Fingerstick) 182 mg/dL (70-99) 149 mg/dL (70-99) 142 mg/dL (70-99) ECHOCARDIOGRAM ECHOCARDIOGRAM <Conclusion> The left ventricular systolic function is normal and the ejection fraction is within normal range. EF 55% There is normal LV segmental wall motion. DATE: 05/20/17 1138 STRESS TEST STRESS TEST Conclusion 1. Abnormal baseline EKG with nonspecific ST-T wave changes which become more prominent with stress. This is suggestive but not diagnostic of ischemia. 2. Nuclear imaging shows no reversible ischemia. 3. Nuclear imaging shows fixed mild inferior wall thinning which is consistent with an attenuation defect. 4. Normal left ventricular systolic function with no regional wall motion abnormalities and an ejection fraction of greater than 70%. 5. Moderately low risk Lexiscan nuclear stress test with no reversible ischemia and normal LV systolic function. DATE: 01/28/18 1258 ASSESSMENT/PLAN ASSESSMENT/PLAN 1. Angioedema: no urticaria. Noted with tongue swelling, gums resolved with antihistamines. Suspect drug induced from recent cardiac ablation. 2. Possible thrush: per PCP 3. 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 No complications 4. CAD: past stents. Clinically stable. 5. PAD: clinically stable 6. Accelerated HTN: due to missed doses of BP meds 7. DM2/HLP 8. Loop recorder in situ: ([facility]) Recommendations 1. Allergic to lisinopril (angioedema) and has been tolerating on benicar for > 2 yrs. As a precaution for possible cross reaction will DC ARB. I would suspect a medication perioperatively with ablation precipitated this event. Will monitor in the next 24 hours and note any rebound events. Will place on zyrtec. Continue with prednisone. 2. Restart BP meds and will add additional BP meds to compensate removal of ARB pending BP trend. Will place on TTS-1 to avoid rebound HTN with noted daily clonidine PO. 3. Continue with secondary prevention and ASA/plavix. EMEKA LIMA MD 04/29/18 0705: CARDIAC CONSULT ASSESSMENT/PLAN ASSESSMENT/PLAN Patient seen and examined 04/28/18. Agree with BEHAVIORAL PSYCHOLOGIST's assessment and plan. AVNRT s/p recent successful ablation presenting with angioedema and accelerated hypertension Symptoms improving with steroids Resume home antihypertensives and titrate for better blood pressure control CAD status clinically stable Thank you for your consultation MOI CARRASCO APRN Apr 28, 2018 10:29 EMEKA LIMA MD Apr 29, 2018 07:05
[2018-04-28] MEDS ORDERED: cloNIDine TTS-1 1 PATCH PATCH.TDWK TD SCH (11:00)
[2018-04-28 11:11] VITALS: BP 128/53
[2018-04-28] MEDS: CETIRIZINE HCL 10 MG TABLET. PO SCH (11:28)
--- NOTE | 2018-04-28 13:59 | PDOC ---
PROGRESS NOTES Chief Complaint Chief Complaint Hypertensive urgency improved Angioedema? secondary to ARB? will discontinue benicar Thrush Improved Recent cardiac ablation diabetes mellitus type 2 history of dyslipidemia Plan: restart home meds start chlorthalidone continue Diflucan for thrush reassess in the am DVT prophylaxis:scd adn teds History of Present Illness History of Present Illness Patient feeling much better patient wiht no acute events reported overnight, patient with no chest pain , tongue feels better has not had swelling or stridor Vitals Vitals Vital Signs Date Time Temp Pulse Resp B/P (MAP) Pulse Ox O2 Delivery O2 Flow Rate FiO2 04/28/18 11:11 97.6 63 18 128/53 (78) 91 Room Air 97.6 Physical Exam General: Alert, Oriented X3, Cooperative, No acute distress Heart: Regular rate (SR), Normal S1, Normal S2 Lungs: Clear Abdomen: Soft, No tenderness Extremities: No cyanosis, Other (trace LE edema) Skin: No breakdown, No significant lesion Labs LABS Laboratory Tests Test 04/27/18 17:51 04/28/18 07:05 04/28/18 10:55 04/28/18 11:40 Glucose (Fingerstick) 149 mg/dL (70-99) 142 mg/dL (70-99) 169 mg/dL (70-99) Erythrocyte Sedimentation Rate 30 (0-25) Assessment and Plan Assessmemt and Plan Problems Medical Problems: (1) Angio-edema Status: Acute (2) Hypertensive urgency Status: Acute Comment Review of Relevant I have reviewed the following items reese (where applicable) has been applied. Labs Laboratory Tests Test 04/26/18 21:25 04/26/18 21:40 04/27/18 06:00 04/27/18 07:59 White Blood Count 11.1 x10^3/uL (4.0-11.0) 10.0 x10^3/uL (4.0-11.0) Red Blood Count 4.68 x10^6/uL (3.50-5.40) 4.37 x10^6/uL (3.50-5.40) Hemoglobin 12.7 g/dL (12.0-15.5) 12.0 g/dL (12.0-15.5) Hematocrit 39.0 % (36.0-47.0) 36.5 % (36.0-47.0) Mean Corpuscular Volume 83 fL (79-100) 83 fL (79-100) Mean Corpuscular Hemoglobin 27 pg (25-35) 27 pg (25-35) Mean Corpuscular Hemoglobin Concent 33 g/dL (31-37) 33 g/dL (31-37) Red Cell Distribution Width 15.3 % (11.5-14.5) 15.6 % (11.5-14.5) Platelet Count 327 x10^3/uL (140-400) 315 x10^3/uL (140-400) Neutrophils (%) (Auto) 63 % (31-73) 87 % (31-73) Lymphocytes (%) (Auto) 26 % (24-48) 12 % (24-48) Monocytes (%) (Auto) 8 % (0-9) 1 % (0-9) Eosinophils (%) (Auto) 2 % (0-3) 0 % (0-3) Basophils (%) (Auto) 0 % (0-3) 0 % (0-3) Neutrophils # (Auto) 7.0 x10^3uL (1.8-7.7) 8.7 x10^3uL (1.8-7.7) Lymphocytes # (Auto) 2.9 x10^3/uL (1.0-4.8) 1.2 x10^3/uL (1.0-4.8) Monocytes # (Auto) 0.9 x10^3/uL (0.0-1.1) 0.1 x10^3/uL (0.0-1.1) Eosinophils # (Auto) 0.2 x10^3/uL (0.0-0.7) 0.0 x10^3/uL (0.0-0.7) Basophils # (Auto) 0.0 x10^3/uL (0.0-0.2) 0.0 x10^3/uL (0.0-0.2) Sodium Level 143 mmol/L (136-145) 143 mmol/L (136-145) Potassium Level 3.4 mmol/L (3.5-5.1) 3.6 mmol/L (3.5-5.1) Chloride Level 102 mmol/L (98-107) 104 mmol/L (98-107) Carbon Dioxide Level 32 mmol/L (21-32) 28 mmol/L (21-32) Anion Gap 9 (6-14) 11 (6-14) Blood Urea Nitrogen 24 mg/dL (7-20) 24 mg/dL (7-20) Creatinine 1.0 mg/dL (0.6-1.0) 1.2 mg/dL (0.6-1.0) Estimated GFR (Cockcroft-Gault) 64.9 52.6 BUN/Creatinine Ratio 24 (6-20) Glucose Level 118 mg/dL (70-99) 198 mg/dL (70-99) Calcium Level 9.3 mg/dL (8.5-10.1) 9.4 mg/dL (8.5-10.1) Total Bilirubin 0.4 mg/dL (0.2-1.0) Aspartate Amino Transf (AST/SGOT) 27 U/L (15-37) Alanine Aminotransferase (ALT/SGPT) 20 U/L (14-59) Alkaline Phosphatase 51 U/L (46-116) Total Protein 7.5 g/dL (6.4-8.2) Albumin 3.5 g/dL (3.4-5.0) Albumin/Globulin Ratio 0.9 (1.0-1.7) Group A Streptococcus Rapid Negative (NEGATIVE) Segmented Neutrophils % 86 % (35-66) Lymphocytes % 13 % (24-48) Monocytes % 1 % (0-10) Platelet Estimate Adequate (ADEQUATE) Glucose (Fingerstick) 190 mg/dL (70-99) Test 04/27/18 11:59 04/27/18 17:51 04/28/18 07:05 04/28/18 10:55 Glucose (Fingerstick) 182 mg/dL (70-99) 149 mg/dL (70-99) 142 mg/dL (70-99) Erythrocyte Sedimentation Rate 30 (0-25) Test 04/28/18 11:40 Glucose (Fingerstick) 169 mg/dL (70-99) Laboratory Tests Test 04/27/18 17:51 04/28/18 07:05 04/28/18 10:55 04/28/18 11:40 Glucose (Fingerstick) 149 mg/dL (70-99) 142 mg/dL (70-99) 169 mg/dL (70-99) Erythrocyte Sedimentation Rate 30 (0-25) Medications Current Medications Methylprednisolone Sodium Succinate (SOLU-Medrol 125MG VIAL) 125 mg 1X ONCE IV Last administered on 04/26/18 21:23; Start 04/26/18 at 20:45; Stop 04/26/18 at 20:46; Status DC Diphenhydramine HCl (Benadryl) 25 mg 1X ONCE IV Last administered on 21:23; Start 04/26/18 at 20:45; Stop 04/26/18 at 20:46; Status DC Famotidine (Pepcid Vial) 20 mg 1X ONCE IVP Last administered on 04/26/18 21: 23; Start 04/26/18 at 20:45; Stop 04/26/18 at 20:46; Status DC Sodium Chloride 1,000 ml @ 100 mls/hr Q10H IV Last administered on 04/26/18 21:22; Start 04/26/18 at 20:32; Stop 04/27/18 at 06:31; Status DC Clonidine HCl (Catapres) 0.2 mg 1X ONCE PO Last administered on 04/26/18 22: 28; Start 04/26/18 at 22:15; Stop 04/26/18 at 22:16; Status DC Hydralazine HCl (Apresoline Inj) 10 mg PRN Q4HRS PRN IVP SBP>190 Last administered on 04/27/18 01:16; Start 04/26/18 at 22:45 Amlodipine Besylate (Norvasc) 10 mg DAILY PO Last administered on 04/28/18 08: 46; Start 04/27/18 at 09:00 Aspirin (Ecotrin) 81 mg DAILY PO Last administered on 04/28/18 08:38; Start at 09:00 Clonidine HCl (Catapres) 0.1 mg DAILY PO Last administered on 04/28/18 08:45; Start 04/27/18 at 09:00; Stop 04/28/18 at 10:28; Status DC Clopidogrel Bisulfate (Plavix) 75 mg DAILY PO Last administered on 04/28/18 08 :38; Start 04/27/18 at 09:00 Metoprolol Tartrate (Lopressor) 25 mg BID PO Last administered on 04/28/18 08: 46; Start 04/27/18 at 09:00 Potassium Chloride (Klor-Con) 10 meq BIDWMEALS PO Last administered on 08:36; Start 04/27/18 at 08:00 Ranolazine (Ranexa) 500 mg BID PO Last administered on 04/28/18 08:44; Start 04/27/18 at 09:00 Tramadol HCl (Ultram) 50 mg PRN Q6HRS PRN PO PAIN Last administered on 18:32; Start 04/27/18 at 07:45 Fenofibrate (Lofibra) 54 mg DAILY PO Last administered on 04/28/18 08:38; Start 04/27/18 at 09:00 Glimepiride (Amaryl) 0.5 mg BID PO Last administered on 04/27/18 08:08; Start 04/27/18 at 09:00; Stop 04/27/18 at 18:35; Status DC Isosorbide Mononitrate (Imdur) 60 mg DAILY PO Last administered on 04/28/18 08 :48; Start 04/27/18 at 09:00 Atorvastatin Calcium (Lipitor) 20 mg QHS PO Last administered on 04/27/18 21: 13; Start 04/27/18 at 21:00 Chlorthalidone (Thalitone) 25 mg DAILY PO Last administered on 04/28/18 08:44 ; Start 04/27/18 at 11:00 Fluconazole (Diflucan) 100 mg DAILY PO Last administered on 04/28/18 08:41; Start 04/27/18 at 10:45 Glimepiride (Amaryl) 1 mg BIDWMEALS PO Last administered on 04/28/18 08:36; Start 04/28/18 at 08:00 Prednisone (Prednisone) 40 mg DAILY PO Last administered on 04/28/18 08:38; Start 04/27/18 at 21:00 Cetirizine HCl (ZyrTEC) 10 mg DAILY PO Last administered on 04/28/18 11:28; Start 04/28/18 at 11:00 Clonidine HCl (Catapres Tts-1) 1 patch WEEKLY TD Last administered on 2/28/ 19at 11:32; Start 04/28/18 at 11:00 Active Scripts Active Metoprolol Tartrate 25 Mg Tablet 25 Mg PO BID SIG: one p.o. BID Reported Tramadol Hcl 50 Mg Tablet 50 Mg PO Q6HRS PRN Amlodipine Besylate 10 Mg Tablet 10 Mg PO DAILY Clopidogrel (Clopidogrel Bisulfate) 75 Mg Tablet 1 Tab PO DAILY Ranexa (Ranolazine) 500 Mg Tab.er.12h 1 Tab PO BID Potassium Chloride 10 Meq Tablet.er 10 Meq PO BID Isosorbide Mononitrate Er (Isosorbide Mononitrate) 60 Mg Tab.er.24h 1 Tab PO DAILY Benicar Hct 40-25 Mg Tablet (Olmesartan/Hydrochlorothiazide) 1 Each Tablet 1 Tab PO DAILY Tricor (Fenofibrate Nanocrystallized) 48 Mg Tablet 48 Mg PO DAILY Glimepiride 1 Mg Tablet 0.5 Tab PO BID Crestor (Rosuvastatin Calcium) 5 Mg Tablet 1 Tab PO DAILY Clonidine Hcl 0.1 Mg Tablet 1 Tab PO DAILY Aspir 81 (Aspirin) 81 Mg Tablet. 1 Tab PO DAILY Vitals/I & O Vital Sign - Last 24 Hours 04/27/18 04/27/18 04/27/18 04/27/18 15:20 18:32 19:40 19:51 Temp 97.3 98.0 97.3 98.0 Pulse 79 82 Resp 20 16 18 B/P (MAP) 147/77 (100) 181/74 (109) Pulse Ox 98 98 98 98 O2 Delivery Room Air Room Air Room Air Room Air 04/27/18 04/27/18 04/27/18 04/27/18 20:00 21:14 21:15 23:20 Temp 97.5 97.5 Pulse 82 82 72 Resp 17 B/P (MAP) 181/74 181/74 147/77 (100) Pulse Ox 97 O2 Delivery Room Air Room Air 04/28/18 04/28/18 04/28/18 04/28/18 02:35 07:00 08:00 08:44 Temp 98.0 97.7 98.0 97.7 Pulse 70 75 75 Resp 18 18 B/P (MAP) 136/66 (89) 128/62 (84) 166/74 Pulse Ox 98 95 O2 Delivery Room Air Room Air Room Air 04/28/18 04/28/18 04/28/18 2/28/19 08:45 08:46 08:46 08:48 Pulse 75 75 75 75 B/P (MAP) 166/74 166/74 166/74 166/74 04/28/18 11:11 Temp 97.6 97.6 Pulse 63 Resp 18 B/P (MAP) 128/53 (78) Pulse Ox 91 O2 Delivery Room Air Intake and Output 04/27/18 04/27/18 04/28/18 15:00 23:00 07:00 Intake Total 600 ml 900 ml Output Total 750 ml 1000 ml 175 ml Balance -750 ml -400 ml 725 ml TANNER CHRISTOPHER MD Apr 28, 2018 13:58
[2018-04-28 15:11] VITALS: BP 151/64
[2018-04-28 19:55] VITALS: BP 141/58
[2018-04-28] MEDS: ATORVASTATIN CALCIUM 20 MG TABLET PO SCH (21:38)
[2018-04-28 23:35] VITALS: BP 147/60
[2018-04-29 03:51] VITALS: BP_SYST 127; BP_SYST 180; BP_DIAS 70; BP_DIAS 74
[2018-04-29 07:00] VITALS: BP 147/75
[2018-04-29 08:01] VITALS: BP 147/75
[2018-04-29] MEDS: FLUCONAZOLE 100 MG TABLET. PO SCH (08:38)
[2018-04-29] MEDS: FENOFIBRATE 54 MG TABLET. PO SCH (08:39)
[2018-04-29] MEDS: GLIMEPIRIDE 2 MG TABLET. PO SCH (08:39)
[2018-04-29] MEDS: predniSONE 20 MG TABLET PO SCH (08:40)
[2018-04-29] MEDS: CHLORTHALIDONE 25 MG TABLET. PO SCH (08:40)
[2018-04-29] MEDS: CLOPIDOGREL BISULFATE 75 MG TABLET PO SCH (08:40)
[2018-04-29] MEDS: CETIRIZINE HCL 10 MG TABLET. PO SCH (08:41)
[2018-04-29] MEDS: METOPROLOL TART IMMED RELEASE 25 MG TABLET. PO SCH (08:42)
[2018-04-29] MEDS: RANOLAZINE 500 MG TAB.ER.12H PO SCH (08:44)
[2018-04-29] MEDS: ISOSORBIDE MONONITRATE ER 30 MG TAB.ER.24H PO SCH (08:44)
[2018-04-29 08:45] VITALS: BP 147/75
[2018-04-29] MEDS: amLODIPine BESYLATE 10 MG TABLET PO SCH (08:45)
[2018-04-29] MEDS: ASPIRIN ENTERIC COATED 81 MG TABLET.DR. PO SCH (08:52)
[2018-04-29] MEDS: POTASSIUM CHLORIDE 10 MEQ TABLET.ER. PO SCH (08:52)
--- NOTE | 2018-04-29 10:57 | NUR ---
SS following up with discharge planning. No discharge needs noted at this time. Pt is currently on room air. SS will continue to follow for pending discharge needs.
--- NOTE | 2018-04-29 11:34 | PDOC ---
PROGRESS NOTES Chief Complaint Chief Complaint Angioedema Hypertensive urgency Thrush Recent cardiac ablation Diabetes Mellitus type 2 History of dyslipidemia Chronic renal insufficiency History of Present Illness History of Present Illness Patient was seen and examined in her room this morning. Discussed with RN. Patient's angioedema has improved significantly. Most recent blood pressure 147/ 75. Cardiology following. No acute complaints at this time. Probable discharge later today if ok with cardiology. Vitals Vitals Vital Signs Date Time Temp Pulse Resp B/P (MAP) Pulse Ox O2 Delivery O2 Flow Rate FiO2 04/29/18 08:45 75 147/75 04/29/18 08:01 97.9 18 98 Room Air 97.9 Physical Exam General: Alert, Oriented X3, Cooperative, No acute distress Heart: Regular rate (SR), Normal S1, Normal S2 Lungs: Clear, Other (no rhonchi) Abdomen: Soft, No tenderness Extremities: No cyanosis, Other (trace LE edema) Skin: No breakdown, No significant lesion Labs LABS Laboratory Tests Test 04/28/18 11:40 04/28/18 16:42 04/29/18 08:36 Glucose (Fingerstick) 169 mg/dL (70-99) 155 mg/dL (70-99) 84 mg/dL (70-99) Review of Systems Review of Systems Complains of weakness and angioedema. Denies chest pain or headache. Assessment and Plan Assessmemt and Plan Assessment: Angioedema Hypertensive urgency Thrush Recent cardiac ablation Diabetes Mellitus type 2 History of dyslipidemia Chronic renal insufficiency Plan: 1. Cardiac monitoring 2. Prednisone 3. Diflucan 4. Monitor labs 5. Home meds 6. PT/OT 7. Appreciate subspecialty input 8. Possible discharge today if ok with cardiology Comment Review of Relevant I have reviewed the following items reese (where applicable) has been applied. Labs Laboratory Tests Test 04/27/18 11:59 04/27/18 17:51 04/28/18 07:05 04/28/18 10:55 Glucose (Fingerstick) 182 mg/dL (70-99) 149 mg/dL (70-99) 142 mg/dL (70-99) Erythrocyte Sedimentation Rate 30 (0-25) Test 04/28/18 11:40 04/28/18 16:42 04/29/18 08:36 Glucose (Fingerstick) 169 mg/dL (70-99) 155 mg/dL (70-99) 84 mg/dL (70-99) Laboratory Tests Test 04/28/18 11:40 04/28/18 16:42 04/29/18 08:36 Glucose (Fingerstick) 169 mg/dL (70-99) 155 mg/dL (70-99) 84 mg/dL (70-99) Medications Current Medications Methylprednisolone Sodium Succinate (SOLU-Medrol 125MG VIAL) 125 mg 1X ONCE IV Last administered on 04/26/18 21:23; Start 04/26/18 at 20:45; Stop 04/26/18 at 20:46; Status DC Diphenhydramine HCl (Benadryl) 25 mg 1X ONCE IV Last administered on 21:23; Start 04/26/18 at 20:45; Stop 04/26/18 at 20:46; Status DC Famotidine (Pepcid Vial) 20 mg 1X ONCE IVP Last administered on 04/26/18 21: 23; Start 04/26/18 at 20:45; Stop 04/26/18 at 20:46; Status DC Sodium Chloride 1,000 ml @ 100 mls/hr Q10H IV Last administered on 04/26/18 21:22; Start 04/26/18 at 20:32; Stop 04/27/18 at 06:31; Status DC Clonidine HCl (Catapres) 0.2 mg 1X ONCE PO Last administered on 04/26/18 22: 28; Start 04/26/18 at 22:15; Stop 04/26/18 at 22:16; Status DC Hydralazine HCl (Apresoline Inj) 10 mg PRN Q4HRS PRN IVP SBP>190 Last administered on 04/27/18at 01:16; Start 04/26/18 at 22:45 Amlodipine Besylate (Norvasc) 10 mg DAILY PO Last administered on 04/29/18 08: 45; Start 04/27/18 at 09:00 Aspirin (Ecotrin) 81 mg DAILY PO Last administered on 04/29/18 08:52; Start at 09:00 Clonidine HCl (Catapres) 0.1 mg DAILY PO Last administered on 04/28/18 08:45; Start 04/27/18 at 09:00; Stop 04/28/18 at 10:28; Status DC Clopidogrel Bisulfate (Plavix) 75 mg DAILY PO Last administered on 04/29/18 08: 40; Start 04/27/18 at 09:00 Metoprolol Tartrate (Lopressor) 25 mg BID PO Last administered on 04/29/18 08: 42; Start 04/27/18 at 09:00 Potassium Chloride (Klor-Con) 10 meq BIDWMEALS PO Last administered on 08:52; Start 04/27/18 at 08:00 Ranolazine (Ranexa) 500 mg BID PO Last administered on 04/29/18 08:44; Start at 09:00 Tramadol HCl (Ultram) 50 mg PRN Q6HRS PRN PO PAIN Last administered on 18:32; Start 04/27/18 at 07:45 Fenofibrate (Lofibra) 54 mg DAILY PO Last administered on 04/29/18 08:39; Start 04/27/18 at 09:00 Glimepiride (Amaryl) 0.5 mg BID PO Last administered on 04/27/18 08:08; Start 04/27/18 at 09:00; Stop 04/27/18 at 18:35; Status DC Isosorbide Mononitrate (Imdur) 60 mg DAILY PO Last administered on 04/29/18 08: 44; Start 04/27/18 at 09:00 Atorvastatin Calcium (Lipitor) 20 mg QHS PO Last administered on 04/28/18 21: 38; Start 04/27/18 at 21:00 Chlorthalidone (Thalitone) 25 mg DAILY PO Last administered on 04/29/18 08:40; Start 04/27/18 at 11:00 Fluconazole (Diflucan) 100 mg DAILY PO Last administered on 04/29/18 08:38; Start 04/27/18 at 10:45 Glimepiride (Amaryl) 1 mg BIDWMEALS PO Last administered on 04/29/18 08:39; Start 04/28/18 at 08:00 Prednisone (Prednisone) 40 mg DAILY PO Last administered on 04/29/18 08:40; Start 04/27/18 at 21:00 Cetirizine HCl (ZyrTEC) 10 mg DAILY PO Last administered on 04/29/18at 08:41; Start 04/28/18 at 11:00 Clonidine HCl (Catapres Tts-1) 1 patch WEEKLY TD Last administered on at 11:32; Start 04/28/18 at 11:00 Active Scripts Active Metoprolol Tartrate 25 Mg Tablet 25 Mg PO BID SIG: one p.o. BID Reported Tramadol Hcl 50 Mg Tablet 50 Mg PO Q6HRS PRN Amlodipine Besylate 10 Mg Tablet 10 Mg PO DAILY Clopidogrel (Clopidogrel Bisulfate) 75 Mg Tablet 1 Tab PO DAILY Ranexa (Ranolazine) 500 Mg Tab.er.12h 1 Tab PO BID Potassium Chloride 10 Meq Tablet.er 10 Meq PO BID Isosorbide Mononitrate Er (Isosorbide Mononitrate) 60 Mg Tab.er.24h 1 Tab PO DAILY Benicar Hct 40-25 Mg Tablet (Olmesartan/Hydrochlorothiazide) 1 Each Tablet 1 Tab PO DAILY Tricor (Fenofibrate Nanocrystallized) 48 Mg Tablet 48 Mg PO DAILY Glimepiride 1 Mg Tablet 0.5 Tab PO BID Crestor (Rosuvastatin Calcium) 5 Mg Tablet 1 Tab PO DAILY Clonidine Hcl 0.1 Mg Tablet 1 Tab PO DAILY Aspir 81 (Aspirin) 81 Mg Tablet. 1 Tab PO DAILY Vitals/I & O Vital Sign - Last 24 Hours 04/28/18 04/28/18 04/28/18 04/28/18 15:11 19:55 20:00 21:38 Temp 97.7 97.8 97.7 97.8 Pulse 65 70 70 Resp 17 B/P (MAP) 151/64 (93) 141/58 (85) 141/58 Pulse Ox 95 96 O2 Delivery Room Air Room Air Room Air 04/28/18 04/28/18 04/29/18 04/29/18 21:39 23:35 03:51 03:51 Temp 98.1 97.9 98.1 97.9 Pulse 70 63 69 Resp 17 17 B/P (MAP) 141/58 147/60 (89) 127/74 (91) 180/70 (106) Pulse Ox 97 97 O2 Delivery Room Air Room Air 04/29/18 04/29/18 04/29/18 04/29/18 07:00 08:00 08:01 08:42 Temp 97.9 97.9 97.9 97.9 Pulse 60 60 74 Resp 18 18 B/P (MAP) 147/75 (99) 147/75 (99) 147/75 Pulse Ox 98 98 O2 Delivery Room Air Room Air Room Air 04/29/18 04/29/18 04/29/18 08:44 08:44 08:45 Pulse 71 70 75 B/P (MAP) 147/75 147/75 147/75 Intake and Output 04/28/18 04/28/18 04/29/18 14:59 22:59 06:59 Intake Total 600 ml 900 ml 500 ml Output Total 600 ml 1900 ml Balance 0 ml 900 ml -1400 ml JANNETTE PITTS III DO Apr 29, 2018 11:34
--- NOTE | 2018-04-29 12:47 | PDOC ---
MOI CARRASCO [employer] TRUCK OPERATOR 04/29/18 1247: CARDIO Progress Notes Date and Time Date of Service 04/29/2018 Time of Evaluation 1120 Subjective Subjective: No Chest Pain, No shortness of breath, No Palpitations Vitals Vitals Vital Signs Date Time Temp Pulse Resp B/P (MAP) Pulse Ox O2 Delivery O2 Flow Rate FiO2 04/29/18 08:45 75 147/75 04/29/18 08:01 97.9 18 98 Room Air 97.9 Weight Weight [ ] Input and Output Intake and Output Intake and Output 04/29/18 07:00 Intake Total 2000 ml Output Total 2500 ml Balance -500 ml Intake Oral 2000 ml Output Urine Total 2500 ml # Voids 1 Laboratory Labs Laboratory Tests Test 04/28/18 16:42 04/29/18 08:36 04/29/18 12:06 Glucose (Fingerstick) 155 mg/dL (70-99) 84 mg/dL (70-99) 120 mg/dL (70-99) Physical Exam HEENT: Neck Supple W Full Motion Chest: Symmetric LUNGS: Clear to Auscultation Heart: S1S2, RRR (SR no significant ectopies) Abdomen: Soft N/T Extremities: No Calf Tenderness Neurology: alert, oriented, follow commands Assessment Assessment 1. Angioedema: no urticaria. Noted with tongue swelling, gums resolved with antihistamines. Suspect drug induced from recent cardiac ablation. 2. 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 Recent EF nml 4. CAD: past stents. Clinically stable. 5. PAD: clinically stable 6. Accelerated HTN: BP better 7. DM2/HLP 8. Loop recorder in situ: ([facility] [place]) Recommendations 1. Allergic to lisinopril (angioedema) and has been tolerating on benicar for > 2 yrs. As a precaution for possible cross reaction will DC ARB. I would suspect a medication perioperatively with ablation precipitated this event. Continue with zyrtec and steroid to defer to PCP 2. Continue BP meds except for benicar and will provide Rx for catapress transdermal TTS1. Encouraged HBPM 3. Continue with secondary prevention and ASA/plavix. 4. Follow up as scheduled EMEKA LIMA MD 04/29/182040: CARDIO Progress Notes Assessment Assessment Patient seen and examined. Agree with SIGNAL WORKER's assessment and plan. Angioedema improved CAD status stable s/p AVNRT ablation maintaining sinus rhythm Follow up in 1 month MOI CARRASCO APRN Apr 29, 2018 12:47 EMEKA LIMA MD Apr 29, 2018 20:41
--- NOTE | 2018-04-29 14:39 | NUR ---
PT LEFT WITH FAMILYT THIS SHIFT AND ASKED THAT MOI CALL IN HER CLONIDINE PATCH PERSCRIPTION TO THE [facility]. PT ENCOURAGED TO CONTINUE ZYRTEC AT HOME DAILY FOR A COUPLE WEEKS. PT GIVEN HAND SCRIPT FOR MEDROL DOSE PACK PER DR PITTS. Addendum: 04/29/18 at 1824 by KYLAH CALIXTO RN SPOKE WITH THE PT THIS EVENING IN REGARDS TO STOPPING HER BENICAR(OLMESARTAN), CLONIDINE PO, AND CONTINUING TO TAKE ZYRTEC FOR A COUPLE OF WEEKS. PT ALSO REMINDED TO FILL MEDROL DOSE PACK HAND SCRIPT WAS GIVEN AND THIS NURSE CALLED IN CLONIDINE PATCHES AND CHLORTHALIDONE TO [facility] AND SPOKE DIRECTLY TO PHARMACIST IN REGARDS TO NEW MEDS AND WHAT TO STOP AND CONTINUE WELL IN LENGTH EDUCATION AGAIN WITH THE PT. PT ENCOURAGED TO CALL IF THERE ARE ANY QUESTIONS.
--- NOTE | 2018-04-29 19:20 | DS ---
DATE OF DISCHARGE: 04/29/2018 ADMISSION DIAGNOSIS: Angioedema. DISCHARGE DIAGNOSIS: Resolving angioedema secondary to angiotensin-converting enzyme inhibitors. CONSULTS: Cardiology. PROCEDURES: None. HOSPITAL COURSE: The patient is a pleasant middle-aged female who presented with angioedema, probably secondary to MICHAEL inhibitor. She was admitted, started on steroids. Cardiology was consulted. We held the lisinopril. Over the past few days, she has improved. Her symptoms have resolved. We plan to discharge on a steroid taper. DISPOSITION: Home. ACTIVITY: As tolerated. DIET: Low sodium. MEDICATIONS: Please see MRAD. TOTAL TIME: 32 minutes. JANNETTE PITTS DO DR: MEREDITH/rony JOB#: [id number] / [id number]
== END 2018-04-29 14:20 | disposition home or self-care (01) | DRG 305 ==
LOC: ER 20:19 → 2 NORTH 22:35
PROVIDERS: ADMIT Family Medicine; ATTEND Family Medicine
DX: I16.0 Hypertensive urgency (principal); T78.3XXA Angioneurotic edema, initial encounter; I15.8 Other secondary hypertension; E78.00 Pure hypercholesterolemia, unspecified; N18.9 Chronic kidney disease, unspecified; E11.22 Type 2 diabetes mellitus with diabetic chronic kidney disease; E78.5 Hyperlipidemia, unspecified; I25.10 Atherosclerotic heart disease of native coronary artery without angina pectoris; M19.90 Unspecified osteoarthritis, unspecified site; T46.4X5A Adverse effect of angiotensin-converting-enzyme inhibitors, initial encounter; B37.9 Candidiasis, unspecified; J45.909 Unspecified asthma, uncomplicated; Z90.710 Acquired absence of both cervix and uterus; Z90.49 Acquired absence of other specified parts of digestive tract; Z88.8 Allergy status to other drugs, medicaments and biological substances; Z88.1 Allergy status to other antibiotic agents; Z88.0 Allergy status to penicillin; Z82.49 Family history of ischemic heart disease and other diseases of the circulatory system
CPT/HCPCS: 36415; 80048; 80053; 82962; 85007; 85025; 85651; 87070; 87880; 96361; 96374; 96375; J0360; J1200; J2930; J3490; J7030; J7512; 99285-25

== ENCOUNTER → 2018-12-12 | Outpatient (CLI) | payer MEDICARE ==
[~2018-12-12] MED LIST changes: +AMLO10TA8 PO; +CLOP75TA PO; -GLIM1TAB2 PO; +GLIM1TAB3 PO; +ISOS60TA2 PO; +OLME1TAB25 PO; +RANO500T2 PO; +TRAM50TA PO
--- NOTE | 2018-12-13 15:29 | RAD ---
DATE: 12/12/2018 EXAM: MAMMO JASON SCREENING BILATERAL HISTORY: Routine screening COMPARISON: 12/06/2015, 12/07/2016, 12/08/2017 mammographic exams This study was interpreted with the benefit of Computerized Aided Detection (CAD). Breast Density: SCATTERED The breast parenchyma shows scattered fibroglandular densities. Breast parenchyma level B. FINDINGS: Loop recorder device overlies the left inner breast region and obscures evaluation of this site. No suspicious calcifications, distortion, or masses. IMPRESSION: Stable BI-RADS CATEGORY: 1 NEGATIVE RECOMMENDED FOLLOW-UP: 12M 12 MONTH FOLLOW-UP PQRS compliance statement: Patient information was entered into a reminder system with a target due date for the next mammogram. Mammography is a sensitive method for finding small breast cancers, but it does not detect them all and is not a substitute for careful clinical examination. A negative mammogram does not negate a clinically suspicious finding and should not result in delay in biopsying a clinically suspicious abnormality. "Our facility is accredited by the [employer] Mammography Program."
== END | disposition home or self-care (01) ==
LOC: MAMMO 07:44
PROVIDERS: ATTEND Obstetrics & Gynecology
DX: Z12.31 Encounter for screening mammogram for malignant neoplasm of breast (principal)
CPT/HCPCS: 77063; 77067

== ENCOUNTER → 2019-04-06 | Outpatient (CLI) | payer MEDICARE ==
[~2019-04-06] MED LIST changes: -GLIM1TAB3 PO; +GLIM1TAB7 PO; +MECL-75 PO; -MECL25TA3 PO; +POTASSIUM CHLO10 ME1 PO
--- NOTE | 2019-04-06 11:52 | CARD ---
MR#: [id number] Date of Study: 04/06/2019 Ordering Physician: EMEKA LIMA, Referring Physician: EMEKA LIMA, Tech: Jose Drummond RDCS APPROVED REPORT EXAM: Two-dimensional and M-mode echocardiogram with Doppler and color Doppler. Other Information Quality : AverageHR: 58bpm INDICATION CAD RISK FACTORS Hypertension Hyperlipidemia Diabetes Hx smoking, quit 40 years ago 2D DIMENSIONS RVDd3.1 (2.9-3.5cm)Left Atrium(2D)3.2 (1.6-4.0cm) IVSd1.3 (0.7-1.1cm)Aortic Root(2D)2.8 (2.0-3.7cm) LVDd3.3 (3.9-5.9cm)LVOT Diameter1.6 (1.8-2.4cm) PWd1.3 (0.7-1.1cm)LVDs1.8 (2.5-4.0cm) FS (%) 45.7 %SV33.9 ml Aortic Valve AoV Peak Ever.155.6cm/Cara Peak GR.10.2mmHg LVOT Peak Ever.125.0cm/sAVA (VMAX)1.63cm2 AI P 1/2 Cbqt331wt Mitral Valve MV E Tkdrewah27.5cm/sMV DECEL QJXQ683wn MV A Rxqozfzp451.3cm/sE/A Ratio0.6 MV A Kiznwzck950se Pulmonary Valve PV Peak Njrilqkn56.9cm/s Tricuspid Valve TR P. Grjhwtzh394ej/sRAP DQKHGTSI2aiNv TR Peak Gr.84zqZpMZBD02ygRr Pulmonary Vein S1 Eqqhkiye93.7cm/sD2 Ufuukkbl02.5cm/s PVa ckvcmmqc362kgdy LEFT VENTRICLE The left ventricle is normal size. There is mild concentric left ventricular hypertrophy. The left ve ntricular systolic function is normal and the ejection fraction is within normal range. The Ejection Fraction is 60-65%. There is normal LV segmental wall motion. Transmitral Doppler flow pattern is Gra de I-abnormal relaxation pattern. There is no ventricular septal defect visualized. RIGHT VENTRICLE The right ventricle is normal size. The right ventricular systolic function is normal. ATRIA The left atrium size is upper limits of normal. The right atrium size is normal. The interatrial sept um is intact with no evidence for an atrial septal defect or patent foramen ovale as noted on 2-D or Doppler imaging. AORTIC VALVE The aortic valve is mildly calcified. Doppler and Color Flow revealed trace to mild aortic regurgitat ion. There is no significant aortic valvular stenosis. MITRAL VALVE Moderate mitral annular calcification. There is no evidence of mitral valve prolapse. There is no luiz ral valve stenosis. Doppler and Color Flow revealed no mitral valve regurgitation noted. TRICUSPID VALVE The tricuspid valve is normal in structure and function. Doppler and Color Flow revealed trace tricus pid regurgitation. PAP is estimated at 32 mmHg. There is no tricuspid valve stenosis. PULMONIC VALVE The pulmonic valve is not well visualized. Doppler and Color Flow revealed trace pulmonic valvular re gurgitation. There is no pulmonic valvular stenosis. GREAT VESSELS The aortic root is normal in size. The ascending aorta is normal in size. The IVC is normal in size a nd collapses >50% with inspiration. PERICARDIAL EFFUSION There is no pleural effusion. There is no evidence of significant pericardial effusion. Critical Notification Critical Value: No <Conclusion> The left ventricle is normal size. The left ventricular systolic function is normal and the ejection fraction is within normal range. The Ejection Fraction is 60-65%. There is mild concentric left ventricular hypertrophy. Doppler and Color Flow revealed trace to mild aortic regurgitation. There is no significant aortic valvular stenosis. Doppler and Color Flow revealed no mitral valve regurgitation noted. Doppler and Color Flow revealed trace tricuspid regurgitation. PAP is estimated at 32 mmHg. Signed by : Crispin Trinidad MD Electronically Approved : 04/06/2019 11:51:35
== END | disposition home or self-care (01) ==
LOC: ECHO 10:12
PROVIDERS: ATTEND Internal Medicine Cardiovascular Disease
DX: I08.0 Rheumatic disorders of both mitral and aortic valves (principal); I25.10 Atherosclerotic heart disease of native coronary artery without angina pectoris
CPT/HCPCS: 93306

== ENCOUNTER → 2019-10-04 | Outpatient (CLI) | payer MEDICARE ==
[~2019-10-04] MED LIST changes: +REGADENOSON 0.4 MG/5 ML DISP.SYRIN. IV ONE
--- NOTE | 2019-10-04 13:09 | RAD ---
MR#: [id number] Date of Study: 10/04/2019 Ordering Physician: EMEKA LIMA Referring Physician: BIBI JACKSON Tech: RT Jorge Virgen) (N) APPROVED REPORT Test Type: Pharmacological Stress Nurse/Tech: Jordana Miller R.N. Test Indications: CAD Cardiac History: CAD, htn,DM Medications: See Electronic Medical Record Medical History: See Electronic Medical Record Resting ECG: SR W/ very slight ST elevation in lead AVR, V1 Resting Heart Rate: 70 bpm Resting Blood Pressure: 193/78mmHg Pretest Chest Pain: No chest pain Nurse/Tech Notes S1S2, lungs CTA. Note: pt stated that she took all her meds this am ,including her metoprolol, she st ates that her sb/p runs around 140 usually. Consent: The procedure was explained to the patient in lay terms. Informed consent was witnessed. Feng nathan was entered into [employer]. History and Stress Test performed by RT Jorge Virgen) (N) Pharm. Details Pharmacologic stress testing was performed using 0.4mg per 5ml of regadenoson given intravenously ove r 7-10 seconds. Stress Symptoms SOA, "full feeling" in arms and legs POST EXERCISE Reason for Termination: Infusion complete Max HR: 87 bpm Max Blood Pressure: 181/76mmHg Blood Pressure response to exercise: Normal blood pressure response during stress. Heart Rate response to exercise: wnl Chest Pain: No. Arrhythmia: No. ST Change: Yes. non diagnostic ST depressions INTERPRETATION Stress EKG Conclusion: Baseline EKG showed sinus rhythm. Non-diagnostic changes at peak stress. No arrhythmias. Imaging Protocol IMAGE PROTOCOL: Rest Tc-99m/stress Tc-99m 1 day Rest: Stress: Viability: Radiopharm.Tc99m HennekyytFd34b Sestamibi Xjlm73nPx 32.1mCi Duration 13min. 13min. Img Date 10/04/2019 10/04/2019 Inj-Img Uwoq08xzy. 60min. Rest Admin Site:IV - Left AntecubitalAdministrator:RT Jorge Virgen)(N) Stress Admin Site: IV - Left AntecubitalAdministrator: Stephani Perdomo, RT (R)(N) STRESS DATA End Diast. Vol.66.0mlLVEDV index BSA35.0ml End Syst. Vol.15.0mlLVESV index BSA8.0ml Myocardial Bbew622.0gEject. Gcetotdd61.0% Stress Scores Regional WT2.00Summed WT12.00 Regional WM0.00Summed WM0.00 Study quality was good. Left Ventricular size was Normal at Rest and Stress. Lung uptake was . Left Ventricular ejection fraction is 77%. The rest and stress images show normal perfusion, normal contraction and thickening. LV Perf. Quant 17 Seg. SSS2.00 17 Seg. SRS1.00 17 Seg. SDS2.00 Stress Defect Extent (% LAD)0.00Rest Defect Extent (% LAD)2.50Rev. Defect Extent (% LAD)0.00 Stress Defect Extent (% LCX) 15.00Rest Defect Extent (% LCX)0.00Rev. Defect Extent (% LCX)0.00 Stress Defect Extent (% RCA)0.00Rest Defect Extent (% RCA)0.00Rev. Defect Extent (% RCA)0.00 Stress Defect Extent (% ELMER)2.60Rest Defect Extent (% ELMER)0.90Rev. Defect Extent (% ELMER)0.00 Conclusion 1. Regadenoson cardioisotope stress test did not show any evidence of ischemia or infarct. 2. Normal left ventricular systolic function with ejection fraction calculated at 77%. 3. Low risk for cardiac events. Signed by : Emeka Lima, Electronically Approved : 10/04/2019 13:09:05
== END | disposition home or self-care (01) ==
LOC: NM 08:01
PROVIDERS: ATTEND Internal Medicine Cardiovascular Disease
DX: I25.10 Atherosclerotic heart disease of native coronary artery without angina pectoris (principal); I10 Essential (primary) hypertension; E11.9 Type 2 diabetes mellitus without complications
CPT/HCPCS: 78452; 93017; A9500; J2785

== ENCOUNTER → 2019-12-14 | Outpatient (CLI) | payer MEDICARE ==
[~2019-12-14] MED LIST changes: +AMLO-187 PO; -AMLO10TA8 PO; -REGADENOSON 0.4 MG/5 ML DISP.SYRIN. IV ONE
--- NOTE | 2019-12-15 13:04 | RAD ---
DATE: 12/14/2019 8:58 AM EXAM: MAMMO JASON SCREENING BILATERAL HISTORY: Screening COMPARISON: 12/12/2018 Bilateral CC and MLO views of the breasts were performed. Bilateral breast tomosynthesis was performed in CC and MLO projections. This study was interpreted with the benefit of Computerized Aided Detection (CAD). FINDINGS: Breast Density: FATTY The Breast Parenchyma is primarily fatty replaced. Breast parenchyma level density A. Event monitor in the medial left breast is redemonstrated. No suspicious masses, microcalcifications or architectural distortion is present to suggest malignancy in either breast. The visualized axillae are unremarkable. IMPRESSION: No mammographic evidence of malignancy. BI-RADS CATEGORY: 1 NEGATIVE RECOMMENDED FOLLOW-UP: 12M 12 MONTH FOLLOW-UP Annual screening mammography is recommended, unless clinically indicated sooner based on symptoms or change in physical exam. PQRS compliance statement: Patient information was entered into a reminder system with a target due date for the next mammogram. Mammography is a sensitive method for finding small breast cancers, but it does not detect them all and is not a substitute for careful clinical examination. A negative mammogram does not negate a clinically suspicious finding and should not result in delay in biopsying a clinically suspicious abnormality. "Our facility is accredited by the [employer] Mammography Program."
== END ==
LOC: MAMMO 08:47
PROVIDERS: ATTEND Family Medicine
DX: Z12.31 Encounter for screening mammogram for malignant neoplasm of breast (principal)
CPT/HCPCS: 77063; 77067

== ENCOUNTER 2020-03-26 20:17 | Emergency (ER) | payer MEDICARE ==
[~2020-03-26] VITALS: Ht 160 cm; Wt 83.0 kg
--- NOTE | 2020-03-26 22:46 | PHYS DOC ---
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 Patient states that approximately 30 minutes prior to arrival she was reaching to try and turn the doorknob when she felt an electrical and tingling sensation in digits 1 through 3 and had difficulty opening a doorknob. Patient also noted some weakness in her fingers during that time. Since the patient is arrived she has her complete resolution of her symptoms. Notes that she has been working on her taxes this week and has been doing a lot of writing. Denies any fall, injury to the area, neck pain, headache Review of Systems Review of Systems Constitutional: Denies fever or chills [] Eyes: Denies change in visual acuity, redness, or eye pain [] HENT: Denies nasal congestion or sore throat [] Respiratory: Denies cough or shortness of breath [] Cardiovascular: No additional information not addressed in HPI [] GI: Denies abdominal pain, nausea, vomiting, bloody stools or diarrhea [] : Denies dysuria or hematuria [] Musculoskeletal: Denies back pain or joint pain [] Integument: Denies rash or skin lesions [] Neurologic: Denies headache, focal weakness or sensory changes [] Endocrine: Denies polyuria or polydipsia [] All other systems were reviewed and found to be within normal limits, except as documented in this note. Allergies Allergies Allergies Coded Allergies Type Severity Reaction Last Updated Verified lisinopril Allergy Severe Swelling 04/02/15 Yes Penicillins Allergy Intermediate Hives 04/02/15 Yes azithromycin Allergy Intermediate Nausea and Vomiting 04/02/15 Yes cefaclor Allergy Intermediate Nausea and Vomiting 04/03/15 Yes Physical Exam Physical Exam Constitutional: Well developed, well nourished, no acute distress, non-toxic appearance. [] HENT: Normocephalic, atraumatic, bilateral external ears normal, oropharynx moist, no oral exudates, nose normal. [] Eyes: PERRLA, EOMI, conjunctiva normal, no discharge. [] Neck: Normal range of motion, no tenderness, supple, no stridor. [] Cardiovascular:Heart rate regular rhythm, no murmur [] Lungs & Thorax: Bilateral breath sounds clear to auscultation [] Abdomen: Bowel sounds normal, soft, no tenderness, no masses, no pulsatile masses. [] Skin: Warm, dry, no erythema, no rash. [] Back: No tenderness, no CVA tenderness. [] Extremities: No tenderness, no cyanosis, no clubbing, ROM intact, no edema. [] Neurologic: Alert and oriented X 3, normal motor function, normal sensory function, no focal deficits noted. [] Psychologic: Affect normal, judgement normal, mood normal. [] Current Patient Data Vital Signs Vital Signs Date Time Temp Pulse Resp B/P (MAP) Pulse Ox O2 Delivery O2 Flow Rate FiO2 03/26/20 22:10 98.2 87 20 166/77 (106) 97 Room Air 98.2 EKG EKG [] Radiology/Procedures Radiology/Procedures [] Course & Med Decision Making Course & Med Decision Making Pertinent Labs and Imaging studies reviewed. (See chart for details) 80f with right upper extremity pain most consistent with an acute median nerve neuropraxia. No significant findings on exam at this time. No neurologic deficit. Will discharge the patient home with a splint and PCP follow-up. Dragon Disclaimer Dragon Disclaimer This electronic medical record was generated, in whole or in part, using a voice recognition dictation system. Departure Departure Impression: Primary Impression: Right median nerve neuropathy Disposition: 01 DC HOME SELF CARE/HOMELESS Condition: GOOD Referrals: OMA MARIN MD (PCP) Patient Instructions: Pain, Neuropathic Additional Instructions: EMERGENCY DEPARTMENT GENERAL DISCHARGE INSTRUCTIONS Thank you for coming to [facility] Emergency Department (ED) today and trusting us with you care. We trust that you had a positive experience in our Emergency Department. If you wish to speak to the department management, you may call the Director at [phone]. YOUR FOLLOW UP INSTRUCTIONS ARE FOLLOWS: 1. Do you have a private Doctor? If you do not have a private doctor, please ask for a resource list of physicians or clinics that may be able to assist you with follow up care. 2. The Emergency Physicain has interpreted your x-rays. The X-Ray specialist will also review them. If there is a change in the findings, you will be notified in 48 hours when at all possible. 3. A lab test or culture has been done, your results will be reviewed and you will be notified if you need a change in treatment. ADDITIONAL INSTRUCTIONS AND INFORMATION: 1. Your care today has been supervised by a physician who is specially trained in emergency care. Many problems require more than one evaluation for a complete diagnosis and treatment. We recommend that you schedule your follow up appointment as recommended to ensure complete treatment of you illness or injury. If you are unable to obtain follow up care and continue to have a problem, or if your condition worsens, we recommend that you return to the ED. 2. We are not able to safely determine your condition over the phone nor are we able to give sound medical advice over the phone. For these safety reasons, if you call for medical advice we will ask you to come to the ED for further evaluation. 3. If you have any questions regarding these discharge instructions please call the ED at [phone]. SAFETY INFORMATION: In the interest of safety, wellness, and injury prevention; we encourage you to wear your sealbelt, if you smoke; quite smoking, and we encourage family to use a protective helmet for bicycling and other sporting events that present an increased risk for head injury. IF YOUR SYMPTOMS WORSEN OR NEW SYMPTOMS DEVELOP, OR YOU HAVE CONCERNS ABOUT YOUR CONDITION; OR IF YOUR CONDITION WORSENS WHILE YOU ARE WAITING FOR YOUR FOLLOW UP APPOINTMENT; EITHER CONTACT YOUR PRIMARY CARE DOCTOR, THE PHYSICIAN WHOSE NAME AND NUMBER YOU WERE GIVEN, OR RETURN TO THE ED IMMEDIATELY. DAKOTA BURNHAM MD Mar 26, 2020 22:46
[2020-03-26 23:05] VITALS: BP 147/67
== END 2020-03-26 23:05 | disposition home or self-care (01) ==
LOC: ER 20:17
DX: G56.11 Other lesions of median nerve, right upper limb (principal); E11.9 Type 2 diabetes mellitus without complications; E78.00 Pure hypercholesterolemia, unspecified; I10 Essential (primary) hypertension; Z87.891 Personal history of nicotine dependence; Z88.0 Allergy status to penicillin; Z88.1 Allergy status to other antibiotic agents; Z88.8 Allergy status to other drugs, medicaments and biological substances
CPT/HCPCS: 29125; 99283

== ENCOUNTER → 2020-04-03 | Outpatient (CLI) | payer MEDICARE ==
[2018-04-29 08:45] VITALS: BP_SYST 147
[2020-03-26 23:05] VITALS: BP_DIAS 67
[~2020-04-03] MED LIST changes: -ISOS20TA2 PO; +ISOS20TA6 PO; -ISOS60TA2 PO; +ISOS60TA55 PO
--- NOTE | 2020-04-03 18:31 | RAD ---
INDICATION: Reason: RENAL CYSTS / Spl. Instructions: / History: COMPARISON: None. TECHNIQUE: Grayscale and color ultrasound images obtained of the bilateral kidneys and bladder. FINDINGS: Right Kidney: 171 mm. No hydronephrosis. Left Kidney: 121 mm. No hydronephrosis. Multiple bilateral renal cysts measuring up to 135 mm on the right and 106 mm on the left. Bladder: Decompressed therefore not well evaluated IMPRESSION: * Multiple large hypoechoic lesions of the bilateral kidneys which appear predominantly cystic. Give n the large size and multiplicity portions are not seen well enough to visualize the entire lesion. Electronically signed by: Reynaldo De La Cruz MD (04/03/2020 6:28 PM) [id number]
== END ==
LOC: US 15:45
PROVIDERS: ATTEND Internal Medicine Nephrology
DX: N28.1 Cyst of kidney, acquired (principal)
CPT/HCPCS: 76770

== ENCOUNTER → 2020-04-10 | Outpatient (CLI) | payer MEDICARE ==
[2018-04-29 08:45] VITALS: BP_SYST 147
[2020-03-26 23:05] VITALS: BP_DIAS 67
--- NOTE | 2020-04-10 16:32 | CARD ---
MR#: [id number] Date of Study: 04/10/2020 Ordering Physician: EMEKA LIMA, Referring Physician: EMEKA LIMA, Tech: Naz Arias RDCS APPROVED REPORT EXAM: Two-dimensional and M-mode echocardiogram with Doppler and color Doppler. Other Information Quality : Good INDICATION Cardiac Disease: CAD 2D DIMENSIONS RVDd1.8 (2.9-3.5cm)Left Atrium(2D)3.9 (1.6-4.0cm) IVSd1.3 (0.7-1.1cm)Aortic Root(2D)2.8 (2.0-3.7cm) LVDd4.4 (3.9-5.9cm)LVOT Diameter2.1 (1.8-2.4cm) PWd1.3 (0.7-1.1cm)LVDs2.5 (2.5-4.0cm) FS (%) 30.0 %SV64.7 ml LVEF(%)60.0 (>50%) Aortic Valve AoV Peak Ever.148.6cm/sAoV VTI32.7cm AO Peak GR.8.8mmHgLVOT Peak Ever.110.2cm/s AO Mean GR.5mmHgAVA (VMAX)2.46cm2 FREDO (VTI)3.70ry7NU P 1/2 Zmhs884hc Mitral Valve MV E Tvrdzzmt19.1cm/sMV E Peak Gr.7mmHg MV DECEL AATI183bkBP A Nbnneoii119.4cm/s MV E Mean Gr.2mmHgE/A Ratio0.6 Tricuspid Valve TR P. Lkatvzjj467sm/sRAP QDTBOWUV9pfZb TR Peak Gr.58ayAaPKJL09omIg Pulmonary Vein S1 Tksatnku01.1cm/sD2 Cmwqlhyc22.3cm/s LEFT VENTRICLE The left ventricle is normal size. There is mild concentric left ventricular hypertrophy. The left ve ntricular systolic function is normal. The Ejection Fraction is 60-65%. There is normal LV segmental wall motion. Transmitral Doppler flow pattern is Grade I-abnormal relaxation pattern. RIGHT VENTRICLE The right ventricle is normal size. The right ventricular systolic function is normal. ATRIA The left atrium size is normal. The right atrium size is normal. The interatrial septum is intact wit h no evidence for an atrial septal defect or patent foramen ovale as noted on 2-D or Doppler imaging. AORTIC VALVE The aortic valve is calcified but opens well. Doppler and Color Flow revealed mild aortic regurgitati on. There is no significant aortic valvular stenosis. MITRAL VALVE The mitral valve is calcified but opens well. Mitral annular calcification is moderate. There is no e vidence of mitral valve prolapse. Calculated mitral valve area is 2.2 cm2 with maximum pressure gradi ent of 7 mmHg and mean pressure gradient of 2 mmHg. Doppler and Color Flow revealed no mitral valve r egurgitation noted. TRICUSPID VALVE The tricuspid valve is normal in structure and function. Doppler and Color Flow revealed trace to mil d tricuspid regurgitation. There is moderate pulmonary hypertension. The PA pressure was estimated at 44 mmHg. There is no tricuspid valve stenosis. PULMONIC VALVE The pulmonic valve is not well visualized. Doppler and Color Flow revealed mild pulmonic valvular reg urgitation. There is no pulmonic valvular stenosis. GREAT VESSELS The aortic root is normal in size. The ascending aorta is not well seen. The IVC is normal in size an d collapses >50% with inspiration. PERICARDIAL EFFUSION There is no evidence of significant pericardial effusion. Critical Notification Critical Value: No <Conclusion> The left ventricular systolic function is normal. The Ejection Fraction is 60-65%. There is normal LV segmental wall motion. Transmitral Doppler flow pattern is Grade I-abnormal relaxation pattern. Mld aortic regurgitation. Trace to mild tricuspid regurgitation. The PA pressure was estimated at 44 mmHg. There is no evidence of significant pericardial effusion. Signed by : Emeka Lima, Electronically Approved : 04/10/2020 16:32:28
== END ==
LOC: ECHO 10:43
PROVIDERS: ATTEND Internal Medicine Cardiovascular Disease
DX: I08.8 Other rheumatic multiple valve diseases (principal); I25.10 Atherosclerotic heart disease of native coronary artery without angina pectoris
CPT/HCPCS: 93306

== ENCOUNTER → 2020-12-16 | Outpatient (CLI) | payer MEDICARE ==
--- NOTE | 2020-12-16 15:57 | RAD ---
Bilateral digital screening 2-D and 3-D (digital breast tomosynthesis) mammogram: Reason for examination: Routine screening. Comparison: Mammograms from 12/14/2019 12/12/2018. Interpretation was made with the benefit of CAD. FINDINGS: Breast density: Category B. There are scattered areas of fibroglandular density. No suspicious breast mass, malignant appearing calcifications, or architectural distortion is seen. T he cardiac event monitoring device obscures a small portion of the inner left breast. There is unchan ged benign superficial lesion likely within or just deep to the skin in the left upper outer quadrant . IMPRESSION: No evidence of malignancy. Assessment: BI-RADS 1. Negative. Recommendation: Routine screening mammograms. The patient will receive a letter with the results in the mail. Patient information will be entered i nto the mammography reminder system with a target recall date for the next mammogram. A reminder baldomero er will be generated. Electronically signed by: Kelly Lockwood MD (12/16/2020 3:55 PM) [id number]
== END ==
LOC: MAMMO 10:09
PROVIDERS: ATTEND Family Medicine
DX: Z12.31 Encounter for screening mammogram for malignant neoplasm of breast (principal)
CPT/HCPCS: 77063; 77067

== ENCOUNTER → 2021-05-01 | Outpatient (CLI) | payer MEDICARE ==
[~2021-05-01] MED LIST changes: +REGADENOSON 0.4 MG/5 ML DISP.SYRIN. IV ONE
--- NOTE | 2021-05-02 11:23 | RAD ---
MR#: [id number] Date of Study: 05/01/2021 Ordering Physician: EMEKA LIMA, Referring Physician: BIBI JACKSON Tech: RACHELE Bowens APPROVED REPORT Test Type: Pharmacological Stress Nurse/Tech: Fatmata So RN Test Indications: CAD Cardiac History: Diabetes Medications: See Electronic Medical Record Medical History: See Electronic Medical Record Resting ECG: SR with PVC's Resting Heart Rate: 73 bpm Resting Blood Pressure: 143/70mmHg Pretest Chest Pain: No chest pain Nurse/Tech Notes S1,S2 and lungs clear to auscultation. Consent: The procedure was explained to the patient in lay terms. Informed consent was witnessed. Feng eout was entered into [employer]. History and Stress Test performed by RACHELE Bowens Pharm. Details Pharmacologic stress testing was performed using 0.4mg per 5ml of regadenoson given intravenously ove r 7-10 seconds. Stress Symptoms No chest pain or symptoms. POST EXERCISE Reason for Termination: Infusion complete Max HR: 88 bpm Max Blood Pressure: 168/66mmHg Blood Pressure response to exercise: Normal blood pressure response during stress. Heart Rate response to exercise: WNL Chest Pain: No. Arrhythmia: Yes. PVC's INTERPRETATION Stress EKG Conclusion: The resting EKG shows a sinus rhythm, PVCs and mild ST-T wave changes. The patient has mild further ST segment changes with infusion that are not diagnostic of ischemia. Baseline abnormal EKG with nonspecific ST-T wave changes with infusion that are not diagnostic of isc hemia. Imaging Protocol IMAGE PROTOCOL: Rest Tc-99m/stress Tc-99m 1 day Rest: Stress: Viability: Radiopharm.Tc99m PhumgvyxoFd62s Sestamibi Dose10.5mCi 33mCi Duration 15min. 10min. Img Date 05/01/2021 05/01/2021 Inj-Img Kbss71nsp. 60min. Rest Admin Site:IV - Left AntecubitalAdministrator:RT Param (R)(N) Stress Admin Site: IV - Left AntecubitalAdministrator: Kaveh Quijano, RT (R)(N) STRESS DATA End Diast. Vol.76.0mlAv. Heart Rate72.0bpm End Syst. Vol.15.0mlCO Index BSA0.0L/min Myocardial Huxq943.0gEject. Oeqlqffg94.0% Stress Rates Pk. Fill Rate3.05EDV/secLVtime Pk. Fill 229.85msec Pk. Empty Rate4.83ESV/secLVtime Pk. Ivxeu975.87msec /3 Pk. Fill0.99EDV/sec Stress Scores Regional WT3.00Summed WT11.00 Regional WM0.00Summed WM0.00 LV Perfusion The stress images show no significant defects. The rest images show no significant defects. Nuclear imaging shows no reversible ischemia or infarct. Wall Motion LV systolic function is intact with an ejection fraction of greater than 75%. LV Perf. Quant 17 Seg. SSS0.00 17 Seg. SRS0.00 17 Seg. SDS0.00 Stress Defect Extent (% LAD)0.00Rest Defect Extent (% LAD)0.00Rev. Defect Extent (% LAD)0.00 Stress Defect Extent (% LCX) 0.00Rest Defect Extent (% LCX)0.00Rev. Defect Extent (% LCX)0.00 Stress Defect Extent (% RCA)0.00Rest Defect Extent (% RCA)0.00Rev. Defect Extent (% RCA)0.00 Stress Defect Extent (% ELMER)0.00Rest Defect Extent (% ELMER)0.00Rev. Defect Extent (% ELMER)0.00 Conclusion 1. Abnormal baseline EKG but no EKG evidence of stress-induced ischemia. 2. Nuclear imaging shows no reversible ischemia or infarct. 3. Normal LV systolic function with an ejection fraction of greater than 75%. 4. Moderately low risk Lexiscan nuclear stress test. Signed by : Crispin Trinidad MD Electronically Approved : 05/02/2021 11:23:05
== END ==
LOC: NM 08:51
PROVIDERS: ATTEND Internal Medicine Cardiovascular Disease
DX: R94.31 Abnormal electrocardiogram [ECG] [EKG] (principal); I25.10 Atherosclerotic heart disease of native coronary artery without angina pectoris
CPT/HCPCS: 78452; 93017; A9500; J2785

== ENCOUNTER → 2021-05-07 | Outpatient (CLI) | payer MEDICARE ==
[~2021-05-07] MED LIST changes: -REGADENOSON 0.4 MG/5 ML DISP.SYRIN. IV ONE
--- NOTE | 2021-05-07 12:10 | RAD ---
MR#: [id number] Date of Study: 05/07/2021 Ordering Physician: EMEKA LIMA, Referring Physician: EMEKA LIMA, Tech: Ken Moffett MBA, RDMS, RVT, RDCS, RTR APPROVED REPORT Patient Location: OUT-PATIENT Indications PAD Findings Right arm 139, left arm 149 Right ankle 153, left ankle 163 Right CALLIE 1.0, left CALLIE 1.1 Critical Notification Critical Value: No <Conclusion> 1. Normal bilateral CALLIE Signed by : Juve Del Toro, Electronically Approved : 05/07/2021 12:09:41
--- NOTE | 2021-05-07 12:11 | RAD ---
MR#: [id number] Date of Study: 05/07/2021 Ordering Physician: EMEKA LIMA, Referring Physician: EMEKA LIMA, Tech: Ken Moffett MBA, RDMS, RVT, RDCS, RTR APPROVED REPORT Patient Location: OUT-PATIENT Indications PAD VELOCITY AND DOPPLER WAVEFORM ANALYSIS RIGHT cm/secWaveformSeverity LEFT cm/secWaveform Severity dCFA 233.0BiphasicdCFA 196.0Biphasic Prof Fem Art. 131.0BiphasicProf Fem Art. 80.0Biphasic Fem Art Prox. 158.0BiphasicFem Art Prox. 126.0Biphasic Fem Art Mid. 145.0BiphasicFem Art Mid. 194.0Biphasic Fem Art Dist. 181.0BiphasicFem Art Dist. 150.0Biphasic Pop Art(Fossa) 77.0BiphasicPop Art(AK) 91.0Biphasic TICKET PRINTER Prox. 109.0BiphasicPTA Prox. 89.0Biphasic TICKET PRINTER Dist. 57.0BiphasicPTA Dist. 75.0Biphasic Per Art Mid. 71.0BiphasicPer Art Mid. 46.0Biphasic JESSIKA Prox. 64.0BiphasicATA Prox. 80.0Biphasic DPA 64BiphasicDPA 71Biphasic Findings Grayscale images of the bilateral lower extremity arterial vessels demonstrates mild diffuse atherosc lerosis. Mild elevation in velocities is noted at the bilateral common femoral arteries although the re is a biphasic waveform suggestive of less than 50% stenosis. Bilateral SFA, popliteal arteries did not show any significant disease There is bilateral three-vessel runoff without any high-grade stenosis noted Critical Notification Critical Value: No <Conclusion> 1. No significant bilateral lower extremity arterial disease Signed by : Juve Del Toro, Electronically Approved : 05/07/2021 12:10:53
--- NOTE | 2021-05-08 10:22 | CARD ---
MR#: [id number] Date of Study: 05/07/2021 Ordering Physician: EMEKA LIMA, Referring Physician: EMEKA LIMA Tech: Viviana Felton [facility] APPROVED REPORT EXAM: Two-dimensional and M-mode echocardiogram with Doppler and color Doppler. Other Information Quality : AverageHR: 57bpm Rhythm : NSRTechnically limited study due to body habitus. INDICATION Cardiac Disease: CAD RISK FACTORS Hypertension Obesity Hyperlipidemia 2D DIMENSIONS RVDd3.0 (2.9-3.5cm)Left Atrium(2D)5.3 (1.6-4.0cm) IVSd1.3 (0.7-1.1cm)Aortic Root(2D)3.2 (2.0-3.7cm) LVDd3.8 (3.9-5.9cm)LVOT Diameter2.0 (1.8-2.4cm) PWd1.4 (0.7-1.1cm)LVDs2.3 (2.5-4.0cm) FS (%) 40.8 %SV45.9 ml LVEF(%)72.3 (>50%) Aortic Valve AoV Peak Ever.156.7cm/sAoV VTI36.6cm AO Peak GR.9.8mmHgLVOT Peak Ever.112.6cm/s AO Mean GR.5mmHgAVA (VMAX)2.28cm2 AI P 1/2 Hryo804hr Mitral Valve MV E Izitonjy70.5cm/sMV DECEL DBCC303du MV A Jvgyjwkd604.3cm/sE/A Ratio0.7 Pulmonary Valve PV Peak Bimqazcm565.4cm/s Tricuspid Valve TR P. Auoklhhn944ue/sTR Peak Gr.34mmHg LEFT VENTRICLE The left ventricle is normal size. There is mild concentric left ventricular hypertrophy. The left ve ntricular systolic function is normal and the ejection fraction is within normal range. Estimated eje ction fraction 65%. There is normal LV segmental wall motion. Transmitral Doppler flow pattern is Gra de I-abnormal relaxation pattern. RIGHT VENTRICLE The right ventricle is normal size. There is normal right ventricular wall thickness. The right ventr icular systolic function is normal. ATRIA The left atrium size is normal. The right atrium size is normal. The interatrial septum is intact wit h no evidence for an atrial septal defect or patent foramen ovale as noted on 2-D or Doppler imaging. AORTIC VALVE The aortic valve is calcified and displays decreased opening. Doppler and Color Flow revealed mild ao rtic regurgitation. There is no significant aortic valvular stenosis. MITRAL VALVE Mitral annular calcification is moderate to severe. There is no evidence of mitral valve prolapse. Th ere is no mitral valve stenosis. Doppler and Color Flow revealed no mitral valve regurgitation noted. TRICUSPID VALVE The tricuspid valve is normal in structure and function. Doppler and Color Flow revealed no tricuspid valve regurgitation noted. There is no tricuspid valve stenosis. PULMONIC VALVE Doppler and Color Flow revealed trace pulmonic valvular regurgitation. There is no pulmonic valvular stenosis. GREAT VESSELS The aortic root is normal in size. The ascending aorta is normal in size. The IVC is normal in size a nd collapses >50% with inspiration. PERICARDIAL EFFUSION There is no evidence of significant pericardial effusion. Critical Notification Critical Value: No <Conclusion> The left ventricular systolic function is normal and the ejection fraction is within normal range. E stimated ejection fraction 65%. There is normal LV segmental wall motion. The aortic valve is calcified and displays decreased opening. Doppler and Color Flow revealed mild a ortic regurgitation. Signed by : Juve Del Toro, Electronically Approved : 05/08/2021 10:21:37
== END ==
LOC: ECHO 08:57
PROVIDERS: ATTEND Internal Medicine Cardiovascular Disease
DX: I08.0 Rheumatic disorders of both mitral and aortic valves (principal); I70.203 Unspecified atherosclerosis of native arteries of extremities, bilateral legs; I25.10 Atherosclerotic heart disease of native coronary artery without angina pectoris
CPT/HCPCS: 93306; 93922; 93925; C8929